=== PATIENT | male | born 1970 | race Caucasian/White ===

== ENCOUNTER 2016-08-28 09:53 | Inpatient (IN) | payer OTHER ==
[~2016-08-28] VITALS: Ht 172.7 cm; Wt 59.0 kg
[2016-08-28] VITALS (7 sets, daily range): BP systolic 96–131; BP diastolic 60–93
--- NOTE | ~2016-08-28 | H ---
[facility] [place] [address] HISTORY AND PHYSICAL Name: MANDO MORALES [facility] Room #: 433-I ADM IN M.R.#: [id number] Admission: 08/28/16 Attend Phys: Nayana Ordaz MD Discharge: Date of : 66 Report #: [id number] THIS REPORT FOR: //name// CC: Nayana Roque REASON FOR PRESENTATION: Shortness of breath of 1 day duration. HISTORY OF PRESENT ILLNESS: This is a very well known patient to us. He is a 45-year-old with past medical history of COPD that was O2 dependent with cachexia related to that. He has had numerous admissions in the past for the same issue. He presented complaining of severe shortness of breath. This has started this morning. He denies any fever or chills. He did have some dry cough. This is minimally productive. He is known as I have stated to have chronic respiratory failure, COPD and maintained on oxygen at home. On presentation, he was found to have very significant CO2 retention and was admitted for further evaluation and management. PAST MEDICAL HISTORY: 1. COPD, oxygen dependent. 2. Status post tracheostomy. 3. Status post PEG. 4. Anxiety. 5. Depression. 6. Status post hernia repair. 7. Tobacco abuse. 8. Status post left hip screw fixation. MEDICATIONS: DuoNeb. Augmentin. Escitalopram. Mirtazapine. Diazepam. Ergocalciferol. ALLERGIES: No known drug allergies. SOCIAL HISTORY: He denies drug or alcohol abuse. Unfortunately, he continues to smoke. REVIEW OF SYSTEMS: GENERAL: No fever or chills. CARDIOVASCULAR: No chest pain; however, significant shortness of breath. PULMONARY: Cough and shortness of breath. GASTROINTESTINAL: No nausea or vomiting. GENITOURINARY: No frequency, no urgency. [facility] [address] [place] [address] HISTORY AND PHYSICAL Name: MANDO MORALES [facility] Room #: 433-I [facility] IN [facility]#: [id number] Admission: 08/28/16 Attend Phys: Nayana Ordaz MD Discharge: Date of : 66 Report #: [id number] FAMILY HISTORY: Significant for hypertension. PHYSICAL EXAMINATION: GENERAL: He is alert, oriented. He is on BiPAP currently. VITAL SIGNS: Blood pressure is 118/85, pulse rate is 118. HEAD AND NECK: Noninvasive positive pressure ventilation mask is on. CHEST: Very limited air entry bilaterally. Usage of accessory muscle is apparent. CARDIOVASCULAR: Regular with no rub detected. ABDOMEN: Soft, nontender with no hepatosplenomegaly. LOWER EXTREMITIES: No edema with intact peripheral pulses. LABORATORY VALUES: Reviewed. Creatinine 0.5, blood sugar is 127. White blood cell count is 10. Blood gas revealed a pH of 7.2 and pCO2 of 97. ASSESSMENT, IMPRESSION AND PLAN: 1. Acute respiratory failure on top of chronic respiratory failure. 2. Severe chronic obstructive pulmonary disease. 3. Noncompliance. 4. O2 dependence. PLAN: 1. Admission. 2. BiPAP for now. 3. IV steroids. 4. Antibiotics. 5. Usual nebulizer treatments for his chronic obstructive pulmonary disease. 6. Repeated blood gases in couple of hours. 7. Resume his depression and anxiety medications. 8. Deep venous thrombosis prophylaxis with Lovenox. <ELECTRONICALLY SIGNED> By: Nayana Ordaz MD 08/29/16 1005 1207 1242 Nayana Ordaz MD /nt
--- NOTE | ~2016-08-28 | EKG ---
[address] [place] [address] ELECTROCARDIOGRAM REPORT Name: MANDO MORALES [facility] Room #: 433-I ADM IN M.R.#: [id number] Admission: 08/28/16 Attend Phys: Nayana Ordaz MD Discharge: Date of : 66 Report #: [id number] THIS REPORT FOR: //name// [facility] ED Test Date: 2016-08-28 Test Time: 09:55:48 Pat Name: MANDO MORALES Department: Room: [facility] Gender: M Outreach Team Member: Anabella RIOS : 1970 Requested By: Lea Velarde Order Number: [id number] MD: Nirmal Altamirano Measurements Intervals [place] Rate: 127 P: 90 [place]: 118 QRS: 76 QRSD: 87 T: 13 QT: 313 QTc: 456 Interpretive Statements Sinus tachycardia LAE, consider biatrial enlargement Minimal ST depression, inferior leads Compared to ECG 07/27/2016 13:03:26 No significant changes Electronically Signed On 08-28-2016 16:34:02 ROD AND TUBE STRAIGHTENER by Nirmal Altamirano [email or web address] <ELECTRONICALLY SIGNED> By: Nirmal Altamirano MD 08/28/16 1634 0955 0955 Nirmal Altamirano MD /CONSTANCE
[~2016-08-28 09:53] MED LIST: ACETAMINOP160 MG/12 PER TUBE; ADVAIR HFA115 MCG/21; ADVAIR HFA115 MCG/21 INH; ALBUTEROL2.5 MG/0.5 INH; ASPIRIN81 M2 PO; ATIVAN0.5 M1 PER TUBE; AUGMENTIN 875-1 EACH PO; AUGMENTIN 875875 MG PER TUBE; BACTRIM DS TAB1 EACH PO; BISACODYL SUPP10 MG RECTAL; BROVANA15 MCG/2 M; BUDESONIDE0.25 MG/2; CATAPRES-TTS 20.2 MG TD; CATHFLO ACT2 MG/VIA1 IV PUSH; CLARITIN10 M2 PO; CLARITIN10 MG PER TUBE; COMBIVENT; DUONEB 2.5-0.5 M3 ML INH; ENOXAPARIN40 MG/0.1 SUBQ; FENTANYL PATCH75 MCG TRANSDERM; FLUSH FLUSH; LACTINEX CHEWA1 EACH PO; LEVAQUIN 500 M500 M2 PO; LEVAQUIN 500 M500 M7 PO; LEXAPRO20 MG PO; LIDODERM 5%1 PATC1 TRANSDERM; LOPRESSOR25 PER TUBE; MONTELUKAST SOD10 MG PER TUBE; MUCINEX TA600 MG/TA2 PER TUBE; NEBULIZER MISCELL; NICOTINE TRANSD14 M1 TRANSDERM; NICOTINE TRANSD21 M1 TRANSDERM; NORCO 10-325 T1 EACH PO; NORCO 5-325 TA1 EACH PO; NYSTATIN15 GM TP; OMEPRAZOLE40 MG PER TUBE; ONDANSETRON HCL4 M2 IV PUSH; PEPCID20 MG PO; PERCOCET 10-321 EACH PER TUBE; PREDNISONE 10 M10 MG; PREDNISONE 10 M10 MG PO; PREDNISONE 20 M20 M1 PO; PREDNISONE 20 M20 MG PO; PROAIR HFA8.5 GM INH; PULMICORT0.5 MG/22 INH; REMERON15 M1 PO; REMERON15 MG PO; SINGULAIR 10 MG10 M1 PO; SODIUM CHLORIDE 0.9% IV; SPIRIVA; TRAMADOL 50 MG50 MG; TRAMADOL 50 MG50 MG PER TUBE; TRAMADOL 50 MG50 MG PO; TYLENOL325 MG PO; TYLENOL325 MG RECTAL; VALIUM10 MG PO; VALIUM5 MG PO; VICODIN ES 7.51 EACH; VICODIN ES 7.51 EACH PO; [UNRECOGNIZED DRUG - OTHER] TP
[2016-08-28] MEDS ORDERED: DUONEB 2.5-0.5 M3 ML INH (10:12)
[2016-08-28] MEDS ORDERED: ZANTAC 150MG T150 MG PO (10:12)
[2016-08-28] MEDS ORDERED: VITAMIN D 5050000 I1 PO (10:12)
[2016-08-28] MEDS ORDERED: MILK OF MA400 MG/5 M PO (10:13)
[2016-08-28] MEDS ORDERED: MUCINEX DM ER1 EAC1 PO (10:14)
[2016-08-28] MEDS ORDERED: ACIDOPHILUS1 EAC4 PO (10:14)
[2016-08-28 10:15] LABS: HEMATOCRIT 37.2 % (42.0-52.0); HEMOGLOBIN 11.5 gm/dL (14.0-18.0); MCH 27.5 pg (26.0-34.0); MCHC 31.1 % (28.0-37.0); MCV 88.3 fL (80.0-100.0); PLATELET COUNT 428 thou/uL (150-400); RBC 4.21 mil/uL (4.50-6.00); RDW 15.6 % (10.5-14.5)
[2016-08-28 10:16] LABS: MANUAL DIFF YES
[2016-08-28 10:23] LABS: CALCIUM 9.4 mg/dL (8.5-10.1); CREATININE 0.5 mg/dL (0.6-1.3); POTASSIUM 4.3 mmol/L (3.5-5.1)
[2016-08-28 10:24] LABS: ABG SAMPLE TYPE ARTERIAL; HCO3 41.6 mmol/L (22.0-26.0); O2(CT) 15.3 mL/dL (15.0-23.0); O2Hb 93.3 % (92.0-98.0); sO2 93.8 % (92.0-98.0); tCO2 44.6 mmol/L (24.0-30.0)
[2016-08-28 10:25] LABS: PCO2 97.8 mmHg (35.0-45.0); STICK SITE R.RADIAL; pH 7.247 (7.360-7.450)
[2016-08-28 11:03] LABS: ABSOLUTE NEUTROPHILS 7.8 thou/uL (1.4-8.2); POLYCHROMASIA OCCASIONAL; TOTAL CELL COUNT 100
[2016-08-28 11:04] LABS: ANISOCYTOSIS 1+
[2016-08-28 12:34] LABS: ABG SAMPLE TYPE ARTERIAL; BE(vivo) 12.3 mmol/L (-2 to +3); HCO3 41.9 mmol/L (22.0-26.0); LACTATE 0.79 mmol/L (0.5-2.0); O2Hb 93.3 % (92.0-98.0); PO2 77.2 mmHg (80.0-100.0); sO2 93.3 % (92.0-98.0); tCO2 44.6 mmol/L (24.0-30.0)
[2016-08-28 12:37] LABS: PCO2 87.1 mmHg (35.0-45.0); Pressure Support 6 cm H20; STICK SITE R.RADIAL; TIDAL VOLUME 370 ml
[2016-08-29 03:40] VITALS: BP 103/68
[2016-08-29 05:25] LABS: ABG SAMPLE TYPE ARTERIAL; BE(vivo) 12.3 mmol/L (-2 to +3); HCO3 40.2 mmol/L (22.0-26.0); LACTATE 1.01 mmol/L (0.5-2.0); O2(CT) 13.6 mL/dL (15.0-23.0); O2Hb 89.8 % (92.0-98.0); PO2 62.5 mmHg (80.0-100.0); STICK SITE R.BRACHIAL; pH 7.359 (7.360-7.450); tCO2 42.5 mmol/L (24.0-30.0)
[2016-08-29 05:26] LABS: Pressure Support 8 cm H20
[2016-08-29 08:00] VITALS: BP 100/55
[2016-08-29 12:00] VITALS: BP 120/68
[2016-08-29 16:00] VITALS: BP 101/66
[2016-08-29 20:43] VITALS: BP 115/69
[2016-08-30 05:30] LABS: HEMATOCRIT 29.2 % (42.0-52.0); MCH 27.4 pg (26.0-34.0); MCHC 31.4 % (28.0-37.0); MCV 87.4 fL (80.0-100.0); RBC 3.35 mil/uL (4.50-6.00); RDW 15.7 % (10.5-14.5); WBC 9.1 thou/uL (4.0-11.0)
[2016-08-30 05:45] LABS: ALBUMIN 3.3 g/dL (3.4-5.0); CALCIUM 8.4 mg/dL (8.5-10.1); CREATININE 0.6 mg/dL (0.6-1.3); PHOSPHORUS 2.4 mg/dL (2.5-4.9); POTASSIUM 4.4 mmol/L (3.5-5.1)
[2016-08-30 05:52] VITALS: BP 109/78
[2016-08-30 06:00] LABS: HEMOGLOBIN 9.2 gm/dL (14.0-18.0)
[2016-08-30 07:04] LABS: ABG SAMPLE TYPE ARTERIAL; BE(vivo) 11.9 mmol/L (-2 to +3); HCO3 39.1 mmol/L (22.0-26.0); LACTATE 0.85 mmol/L (0.5-2.0); O2(CT) 13.5 mL/dL (15.0-23.0); O2Hb 94.5 % (92.0-98.0); PO2 80.3 mmHg (80.0-100.0); sO2 95.2 % (92.0-98.0); tCO2 41.2 mmol/L (24.0-30.0)
[2016-08-30 07:05] LABS: PCO2 67.7 mmHg (35.0-45.0); STICK SITE L.RADIAL
[2016-08-30 08:00] VITALS: BP 115/80
[2016-08-30 12:00] VITALS: BP 126/83
[2016-08-30 16:00] VITALS: BP 120/81
[2016-08-30 19:02] VITALS: BP 120/73
[2016-08-31] VITALS (7 sets, daily range): BP systolic 109–142; BP diastolic 73–83
[2016-08-31 05:45] LABS: HEMATOCRIT 29.3 % (42.0-52.0); HEMOGLOBIN 9.3 gm/dL (14.0-18.0); MCH 27.4 pg (26.0-34.0); MCHC 31.5 % (28.0-37.0); PLATELET COUNT 323 thou/uL (150-400); RBC 3.37 mil/uL (4.50-6.00); RDW 15.8 % (10.5-14.5); WBC 8.9 thou/uL (4.0-11.0)
[2016-08-31 06:04] LABS: CALCIUM 8.2 mg/dL (8.5-10.1); CREATININE 0.6 mg/dL (0.6-1.3); MANUAL DIFF YES; POTASSIUM 4.6 mmol/L (3.5-5.1)
[2016-08-31 09:02] LABS: ABSOLUTE NEUTROPHILS 7.8 thou/uL (1.4-8.2); TOTAL CELL COUNT 100
[2016-08-31 09:03] LABS: ANISOCYTOSIS 1+; MACROCYTES 1+; MICROCYTES SLIGHT; POIKILOCYTOSIS 1+
[2016-08-31] MEDS ORDERED: PREDNISONE 10 M10 MG PO (11:12)
[2016-08-31] MEDS ORDERED: LEVAQUIN 500 M500 M2 PO (11:12)
[2016-08-31] MEDS ORDERED: LEXAPRO20 MG PO (11:59)
[2016-08-31] MEDS ORDERED: NORCO 10-325 T1 EACH PO (12:00)
[2016-08-31] MEDS ORDERED: PROTONIX40 M1 PO (14:52)
[2016-10-05] MEDS ORDERED: LEVAQUIN 500 M500 M1 PO (10:24)
[2016-10-05] MEDS ORDERED: LORTAB 10-3251 EACH PO (10:25)
[2016-10-05] MEDS ORDERED: PREDNISONE 20 M20 MG PO (10:25)
[2016-10-17] MEDS ORDERED: REMERON15 MG PO ×2 (21:23→21:24)
[2016-10-19] MEDS ORDERED: LEVAQUIN 500 M500 M2 PO (12:45)
[2016-10-19] MEDS ORDERED: PREDNISONE 20 M20 MG PO (12:46)
== END 2016-08-31 16:14 | disposition home or self-care (01) | DRG 193 ==
LOC: ER 09:53 → EROBS 11:51 → 4S 11:51
PROVIDERS: Emergency Medicine; Family Medicine; Hospitalist
PROC: 5A09457 Assistance with Respiratory Ventilation, 24-96 Consecutive Hours, Continuous Positive Airway Pressure (ICD-10-PCS; principal; 2016-08-28)
DX: J18.9 Pneumonia, unspecified organism (principal); J96.22 Acute and chronic respiratory failure with hypercapnia; J96.21 Acute and chronic respiratory failure with hypoxia; J44.1 Chronic obstructive pulmonary disease with (acute) exacerbation; E87.2 Acidosis; K21.9 Gastro-esophageal reflux disease without esophagitis; F41.9 Anxiety disorder, unspecified; F32.9 Major depressive disorder, single episode, unspecified; G89.29 Other chronic pain; M54.9 Dorsalgia, unspecified; Z79.891 Long term (current) use of opiate analgesic; Z93.1 Gastrostomy status; Z99.81 Dependence on supplemental oxygen; Z87.81 Personal history of (healed) traumatic fracture; Z79.899 Other long term (current) drug therapy; Z93.0 Tracheostomy status; Z98.890 Other specified postprocedural states; Z91.19 Patient's noncompliance with other medical treatment and regimen; Z79.2 Long term (current) use of antibiotics; Z87.891 Personal history of nicotine dependence
CPT/HCPCS: 10100

== ENCOUNTER 2016-11-11 16:09 | Emergency (ER) | payer OTHER ==
[~2016-11-11] VITALS: Ht 175.3 cm; Wt 81.7 kg
--- NOTE | ~2016-11-11 | EKG ---
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 : 1970 Requested By: Ronit Vidales Order Number: [id number] MD: Shady Sanchez Measurements Intervals [place] Rate: 117 P: 89 [place]: 103 QRS: 76 QRSD: 83 T: 7 QT: 320 QTc: 447 Interpretive Statements Sinus tachycardia Occasional premature ventricular complexes Minimal ST depression, inferior leads Compared to ECG 10/17/2016 05:40:52 Premature ventricular complexes are now present nonspecific change in the ST segments Electronically Signed On 11-12-2016 9:33:08 CDT by Shady Sanchez [email or web address] <ELECTRONICALLY SIGNED> By: Shady Sanchez MD, [facility] 11/12/16 0933 1618 161 Shady Sanchez MD, [facility] /EPI
[~2016-11-11 16:09] MED LIST changes: +ACIDOPHILUS1 EAC4 PO; +LEVAQUIN 500 M500 M1 PO; +LORTAB 10-3251 EACH PO; +MILK OF MA400 MG/5 M PO; +MUCINEX DM ER1 EAC1 PO; +PROTONIX40 M1 PO; +VITAMIN D 5050000 I1 PO; +ZANTAC 150MG T150 MG PO
[2016-11-11] MEDS ORDERED: PROBIOTIC1 EAC1 PO (16:25)
[2016-11-11] MEDS ORDERED: VITAMIN D3400 UNIT PO (16:26)
[2016-11-11] MEDS ORDERED: ATIVAN1 MG PO (16:26)
[2016-11-11] MEDS ORDERED: VOLTAREN GEL 1100 G2 TOP (16:26)
[2016-11-11] MEDS ORDERED: MILK OF MA2400 MG/10 PO (16:27)
[2016-11-11] MEDS ORDERED: DUONEB 2.5-0.5 M3 ML INH (16:27)
[2016-11-11] MEDS ORDERED: REMERON15 MG PO (16:27)
[2016-11-11] MEDS ORDERED: LEVAQUIN 750 M750 MG PO (16:28)
[2016-11-11 16:35] LABS: HEMATOCRIT 33.8 % (42.0-52.0); HEMOGLOBIN 10.8 gm/dL (14.0-18.0); MANUAL DIFF YES; MCH 27.4 pg (26.0-34.0); MCHC 31.9 g/dL (28.0-37.0); PLATELET COUNT 296 thou/uL (150-400); RBC 3.93 mil/uL (4.50-6.00); RDW 15.8 % (10.5-14.5); WBC 7.5 thou/uL (4.0-11.0)
[2016-11-11 16:46] LABS: ANION GAP 2 mmol/L (7-16); BUN 12 mg/dL (7-18); CALCIUM 9.4 mg/dL (8.5-10.1); CHLORIDE 99 mmol/L (98-107); CO2 37 mmol/L (21-32); CREATININE 0.7 mg/dL (0.7-1.3); GLUCOSE 132 mg/dL (74-106); POTASSIUM 4.2 mmol/L (3.5-5.1); SODIUM 138 mmol/L (136-145)
[2016-11-11 16:56] LABS: ALBUMIN 3.2 g/dL (3.4-5.0); ALKALINE PHOSPHATASE 97 U/L (46-116); NT-PRO BRAIN NAT PEPTIDE 45 pg/mL (<300); SGOT 18 U/L (15-37); SGPT 30 U/L (30-65); TOTAL BILIRUBIN 0.2 mg/dL (<0.1-1.0); TROPONIN-I < 0.04 ng/mL (<0.04-0.07)
[2016-11-11 17:01] LABS: ABSOLUTE NEUTROPHILS 6.8 thou/uL (1.4-8.2); TOTAL CELL COUNT 100
[2016-11-11 19:01] VITALS: BP 116/86
== END 2016-11-11 19:05 | disposition home or self-care (01) ==
LOC: ER 16:09
PROVIDERS: Emergency Medicine
DX: J44.1 Chronic obstructive pulmonary disease with (acute) exacerbation (principal); F41.9 Anxiety disorder, unspecified; F32.9 Major depressive disorder, single episode, unspecified; K21.9 Gastro-esophageal reflux disease without esophagitis; J96.20 Acute and chronic respiratory failure, unspecified whether with hypoxia or hypercapnia; G89.29 Other chronic pain; Z88.8 Allergy status to other drugs, medicaments and biological substances; Z87.891 Personal history of nicotine dependence

== ENCOUNTER 2016-11-29 13:03 | Inpatient (IN) | payer OTHER ==
[2016-11-29] VITALS (23 sets, daily range): BP systolic 104–192; BP diastolic 75–95
[~2016-11-29] VITALS: Ht 172.7 cm; Wt 58.3 kg
--- NOTE | ~2016-11-29 | EKG ---
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 : 1970 Requested By: Roosevelt Davalos Order Number: [id number] MD: Shady Sanchez Measurements Intervals [place] Rate: 117 P: 94 ME: 106 QRS: 81 QRSD: 80 T: 12 QT: 318 QTc: 444 Interpretive Statements Sinus tachycardia Right atrial enlargement Minimal ST depression, inferior leads Compared to ECG 11/11/2016 16:18:06 Ventricular premature complex(es) no longer present Electronically Signed On 11-30-2016 8:58:20 CDT by Shady Sanchez [email or web address] <ELECTRONICALLY SIGNED> By: Shady Sanchez MD, [facility] 11/30/16 0858 1421 1421 Shady Sanchez MD, [facility] /EPI
--- NOTE | ~2016-11-29 | H ---
[facility] [place] [address] HISTORY AND PHYSICAL Name: MANDO MORALES [facility] Room #: 306-P ADM IN M.R.#: [id number] Admission: 11/29/16 Attend Phys: Georges Larsen MD Discharge: Date of : 66 Report #: [id number] THIS REPORT FOR: //name// CC: Magnolia Larsen DATE OF SERVICE: 11/29/2016 CHIEF COMPLAINT: Shortness of breath. HISTORY OF PRESENT ILLNESS: The patient is a 45-year-old male with history of severe COPD. The patient has end-stage chronic obstructive disease and has had multiple admissions since last year. The patient's last admission was here in early November of this month. The patient presented to the emergency room because of shortness of breath over the last couple of days. He has had some low-grade fever. The patient denies any dizziness. He did have some chest pain over the chest with coughing. No sputum. No nausea or vomiting, no abdominal pain, no lower extremity swelling or pain. PAST MEDICAL HISTORY: Significant for COPD, anxiety, acute on chronic hypercapnic respiratory failure, chronic back pain, gastroesophageal reflux disease. He has had tracheostomy and PEG in the past, which has been removed. He has history of prior femoral neck fracture. No history of any peptic ulcer disease or bleeding disorder. History of hernia repair. HOME MEDICATIONS: Please look at the nursing documentation for home medications. ALLERGY: Please look at the nursing documentation for allergies. SOCIAL HISTORY: No smoking or alcohol abuse or illicit drug abuse. FAMILY HISTORY: Noncontributory for this patient at present. REVIEW OF SYSTEMS: Kind of limited from the patient because he is on a BiPAP at present. HEENT: He denies any visual disturbance. Denies any dizziness. GASTROINTESTINAL: No nausea, vomiting, or abdominal pain. GENITOURINARY: No dysuria or hematuria. NEUROLOGIC: Denies any focal numbness or weakness of the extremity. He does use a wheelchair at home. He is also supposed to use BiPAP. The 12-point review of system is negative other than the positive and the negative dictated in the history of present illness and the review of system. PHYSICAL EXAMINATION: [facility] [address] [place] [address] HISTORY AND PHYSICAL Name: MANDO MORALES [facility] Room #: 306-P [facility] IN [facility]#: [id number] Admission: 11/29/16 Attend Phys: Georges Larsen MD Discharge: Date of : 66 Report #: [id number] VITAL SIGNS: Reviewed. Blood pressure is 122/83, heart rate of 100 per minute, afebrile. GENERAL: The patient is awake and alert, is in mild respiratory distress. He is presently on a BiPAP. EYES: Pupils are equal and reactive to light. THROAT: Did not test. NECK: Supple. No JVD, no bruit, no lymphadenopathy. CARDIOVASCULAR: S1 and S2. No S3, no murmur. CHEST: Bilateral air entry present. Expiration is prolonged. Poor air movement. There are bilateral wheezes noted. No crackles. ABDOMEN: Soft. Bowel sounds present. No mass, no organomegaly, no tenderness. PERIPHERY: No pedal edema. No calf tenderness. Dorsalis pedis 1+. NEUROLOGICAL: No focal motor or sensory deficit. LABORATORY DATA: Reviewed. EKG showed sinus tachycardia with right atrial enlargement, mild ST depression in the inferior leads. White count of 7.4, hemoglobin of 10.3, platelets 296. Chest x-ray showed no acute infiltrate. There is severe emphysema. Initial blood gas showed a pH of 7.242, pCO2 of 119, pO2 of 50. PT/INR within normal limit. Chemistry is presently pending. His bicarbonate on the chemistry is 45. BUN and creatinine are 8 and 0.4. AST and ALT are within normal limit. Albumin is 3.1. ASSESSMENT AND PLAN: 1. Acute on chronic respiratory failure secondary to chronic obstructive pulmonary disease exacerbation. The patient will be continued on BiPAP. We will repeat his blood gas in a couple of hours. Pulmonary will be consulted. We will titrate his oxygen as needed. We need to check on his compliance with his BiPAP at the long term. 2. Chronic obstructive pulmonary disease exacerbation. The patient will be continued on DuoNeb and steroids. There is no evidence of any active infection. We will monitor. We will also get serial troponin. 3. Deep venous thrombosis prophylaxis. He will be continued on Lovenox for deep venous thrombosis prophylaxis. 4. Depression and anxiety. The patient will be continued on Celexa. Treatment plan has been explained to the patient in detail. <ELECTRONICALLY SIGNED> By: Georges Larsen MD 11/30/16 1208 1455 6683 Georges Larsen MD /nt
--- NOTE | ~2016-11-29 | D ---
[facility] [place] [address] DISCHARGE SUMMARY Name: MANDO MORALES [facility] Room #: 306-P [facility] IN M.R.#: [id number] Admission: 11/29/16 Attend Phys: Georges Larsen MD Discharge: 12/07/16 Date of : 66 Report #: [id number] THIS REPORT FOR: //name// CC: Magnolia Larsen DATE OF SERVICE: 12/07/2016 HISTORY OF PRESENT ILLNESS: The patient is a 45-year-old man with severe COPD and end-stage lung disease, who came to the hospital with shortness of breath. The patient was found to be in acute on chronic respiratory failure due to COPD exacerbation. Pneumonia was also suspected. Please refer to the admission H and P for details. HOSPITALIZATION COURSE: The patient was hospitalized at [facility]. New Home Sales Consultant was consulted. The patient initially was treated with IV antibiotics. He required BiPAP, as well as high doses of IV steroids. He had very slow improvement. The patient's respiratory status slowly returned to the baseline. Currently, the patient is on 4 liters of the oxygen by nasal cannula, that is his baseline. He uses BiPAP at night. His hospital stay was overall uncomplicated and he had no other problems than respiratory failure as detailed above. Currently, the patient's overall condition including physical examination is acceptable as documented in the patient's chart. DISCHARGE DIAGNOSES: 1. Acute on chronic respiratory failure due to severe chronic obstructive pulmonary disease exacerbation, suspected pneumonia, currently at baseline. 2. Chronic respiratory failure due to severe chronic obstructive pulmonary disease. 3. End-stage lung disease. 4. Anxiety. 5. Chronic back pain. 6. Gastroesophageal reflux disease. DISCHARGE MEDICATIONS: Please refer to the medication reconciliation list in EMR. DISPOSITION: The patient will be discharged back to the [facility] facility. FOLLOWUP PLAN: Follow up with the primary care physician and grocery specialist in [address] [place] [id number] DISCHARGE SUMMARY Name: MANDO MORALES [facility] Room #: 306-P [facility].#: [id number] Admission: 11/29/16 Attend Phys: Georges Larsen MD Discharge: 12/07/16 Date of : 66 Report #: [id number] week. I spent more than 30 minutes to coordinate the patient's discharge from the hospital. <ELECTRONICALLY SIGNED> By: Thomas Robins MD 12/13/16 1250 1012 1347 Thomas Robins MD /nt
--- NOTE | ~2016-11-29 | HC ---
[facility] [place] [address] CONSULTATION Name: MANDO MORALES [facility] Room #: 306-P [facility] IN M.R.#: [id number] Admission: 11/29/16 Attend Phys: Georges Larsen MD Discharge: Date of : 66 Report #: [id number] THIS REPORT FOR: //name// CC: Magnolia Larsen DATE OF SERVICE: 11/29/2016 PRIMARY CARE PHYSICIAN: Magnolia Kenyon MD REFERRAL PHYSICIAN: Georges Larsen MD REASON FOR REFERRAL: Acute respiratory failure. HISTORY OF PRESENT ILLNESS: The patient is a 45-year-old white male who presents to the Emergency Room with progressive dyspnea. A pulmonary consultation was requested. The patient has known history of severe COPD felt to be end stage. He has chronic hypoxic respiratory failure and is on 4 liters of O2 Continuously. He has also had numerous hospitalizations in the past. Over the past year, he has had admission at least once every 1-2 months, his last hospitalization being in October of 2016. The patient currently resides at [facility]. He states that he was in his usual state of health until about 2 days prior to presentation when he noted increasing dyspnea. He has had fever a few days ago. Otherwise, he denies any sore throat or productive cough or purulent sputum. PAST MEDICAL HISTORY: Notable for COPD causing severe impairment, chronic hypoxic respiratory failure on 4 liters of O2 chronically, anxiety and depression, tobacco abuse, according to the patient, he stopped smoking recently, chronic back pain - on chronic narcotics, had prior tracheostomy placed, which was subsequently removed, prior PEG tube placement, gastroesophageal reflux disease. PAST SURGICAL HISTORY: As mentioned above including left hip fracture and repair. ALLERGIES: None to medications. MEDICATIONS ON TRANSFER: Include Singulair, DuoNeb, Remeron, Probiotic, Voltaren, vitamin D supplements, Ativan, Levaquin 750 mg once a day. FAMILY HISTORY: Notable for COPD in the father. Mother had pancreatic cancer and diabetes. SOCIAL HISTORY: He is on disability. The patient has smoked about 1-2 packs a [facility] [place] [address] CONSULTATION Name: MANDO MORALES [facility] Room #: 306-P [facility] IN M.R.#: [id number] Admission: 11/29/16 Attend Phys: Georges Larsen MD Discharge: Date of : 66 Report #: [id number] day starting the age of 13, quit smoking recently. Denies any alcohol use. He is , but currently resides at [facility]. REVIEW OF SYSTEMS: Notable for progressive weakness, otherwise 10-point system review negative. PHYSICAL EXAMINATION: GENERAL: He is awake, alert, in moderate distress. He is currently on noninvasive positive pressure ventilation. VITAL SIGNS: Pulse is 134, respiratory rate is 20, blood pressure is 192/94 in the Emergency Room. Saturation 94%. HEENT: Normocephalic, atraumatic. NECK: Supple, without any lymphadenopathy or thyromegaly. CHEST: Breath sounds are decreased bilaterally with moderately prolonged expiratory phase with mild expiratory wheezes. CARDIOVASCULAR: Heart sounds are distant. No obvious murmurs or gallop. Pulses are 2+/4+bilaterally. ABDOMEN: Soft, nontender. No organomegaly or masses felt. RECTAL: Deferred. EXTREMITIES: There is no edema, cyanosis, or clubbing. LABORATORY DATA: Portable chest x-ray shows hyperexpanded lung quiroz with bullous changes in both upper lobes. Crowding of the vasculature is noted in both lower lobes. No obvious consolidation on bronchogram or effusion noted. Electrolytes unremarkable except for bicarbonate 45, creatinine is 0.4. Liver function tests unremarkable. WBC 10,500, hemoglobin 7.3, platelets are normal. Albumin 2.8. Arterial blood gas on admission revealed pH 7.24, pCO2 of 119, pO2 of 88 on 5 liters of O2. IMPRESSION: 1. Acute on chronic hypercapnic hypoxic respiratory failure in this 45-year-old white male secondary to exacerbation of severe end-stage chronic obstructive pulmonary disease. The patient may have a component of respiratory tract infection given recent febrile illness, though this is not obvious on chest radiograph. 2. Chronic obstructive pulmonary disease, end stage, with exacerbation. Chest x-ray shows bilateral upper lobe emphysema which is typically found in tobacco-related lung injury. 3. Protein calorie malnutrition, minor with an albumin of 3.1. RECOMMENDATION: We will continue noninvasive positive pressure ventilation, continue bronchodilators, corticosteroids, and broad-spectrum antibiotics. Antibiotics of choice should cover for possible nosocomial infectious processes given his recent hospitalization within the past month. Nutritional support will be addressed once he is stable. DVT and GI prophylaxis will be addressed. [address] [address] CONSULTATION Name: MANDO MORALES [facility] Room #: 306-P [facility] IN M.R.#: [id number] Admission: 11/29/16 Attend Phys: Georges Larsen MD Discharge: Date of : 66 Report #: [id number] Overall, prognosis felt to be poor given his recurrent exacerbation and severe pulmonary impairment. I believe the patient desires a full code blue. If the patient is able to remain stable off cigarettes for at least a year and medically compliant, he may be a candidate for evaluation for possible lung transplantation. Thank you for this consultation. <ELECTRONICALLY SIGNED> By: Yamil Breen MD 11/30/16 1308 1624 0205 Yamil Breen MD /nt
[~2016-11-29 13:03] MED LIST changes: +ATIVAN1 MG PO; +LEVAQUIN 750 M750 MG PO; +MILK OF MA2400 MG/10 PO; +PROBIOTIC1 EAC1 PO; +VITAMIN D3400 UNIT PO; +VOLTAREN GEL 1100 G2 TOP
[2016-11-29 13:31] LABS: ABG SAMPLE TYPE ARTERIAL; BE(vivo) 18.3 mmol/L (-2 to +3); HCO3 50.2 mmol/L (22.0-26.0); O2(CT) 14.8 mL/dL (15.0-23.0); O2Hb 94.9 % (92.0-98.0); PCO2 119.2 mmHg (35.0-45.0); PO2 88.1 mmHg (80.0-100.0); pH 7.242 (7.360-7.450); sO2 94.1 % (92.0-98.0); tCO2 53.8 mmol/L (24.0-30.0)
[2016-11-29 13:32] LABS: STICK SITE R.RADIAL
[2016-11-29 13:38] LABS: HEMATOCRIT 32.4 % (42.0-52.0); HEMOGLOBIN 10.3 gm/dL (14.0-18.0); MCH 27.6 pg (26.0-34.0); MCHC 31.6 g/dL (28.0-37.0); MCV 87.4 fL (80.0-100.0); PLATELET COUNT 296 thou/uL (150-400); RBC 3.71 mil/uL (4.50-6.00); RDW 15.2 % (10.5-14.5); WBC 10.5 thou/uL (4.0-11.0)
[2016-11-29 13:41] LABS: MANUAL DIFF YES
[2016-11-29 13:44] LABS: APTT 30.9 Seconds (24.5-32.8); PROTIME 9.4 Seconds (9.3-11.4)
[2016-11-29 14:11] LABS: ABSOLUTE NEUTROPHILS 7.2 thou/uL (1.4-8.2); PLATELET ESTIMATE NORMAL; TOTAL CELL COUNT 100
[2016-11-29 14:32] LABS: ALBUMIN 3.1 g/dL (3.4-5.0); ALKALINE PHOSPHATASE 110 U/L (46-116); ANION GAP < 0 mmol/L (7-16); BUN 8 mg/dL (7-18); CALCIUM 8.8 mg/dL (8.5-10.1); CHLORIDE 99 mmol/L (98-107); CK-MB MASS 2.8 ng/mL (<0.5-3.6); CREATININE 0.4 mg/dL (0.7-1.3); GLUCOSE 121 mg/dL (74-106); MAGNESIUM 2.1 mg/dL (1.8-2.4); NT-PRO BRAIN NAT PEPTIDE 109 pg/mL (<300); POTASSIUM 4.7 mmol/L (3.5-5.1); SGOT 26 U/L (15-37); SGPT 27 U/L (30-65); SODIUM 143 mmol/L (136-145); TOTAL BILIRUBIN 0.2 mg/dL (<0.1-1.0); TOTAL PROTEIN 7.9 g/dL (6.4-8.2); TROPONIN-I < 0.04 ng/mL (<0.04-0.07)
[2016-11-29 14:34] LABS: CO2 45 mmol/L (21-32)
[2016-11-29 16:31] LABS: ABG SAMPLE TYPE ARTERIAL; BE(vivo) 12.2 mmol/L (-2 to +3); HCO3 40.2 mmol/L (22.0-26.0); LACTATE 0.63 mmol/L (0.5-2.0); O2(CT) 13.3 mL/dL (15.0-23.0); O2Hb 91.8 % (92.0-98.0); PCO2 74.9 mmHg (35.0-45.0); PO2 63.7 mmHg (80.0-100.0); pH 7.348 (7.360-7.450); sO2 90.2 % (92.0-98.0); tCO2 42.5 mmol/L (24.0-30.0)
[2016-11-29 16:32] LABS: Pressure Support 7 cm H20; STICK SITE R.RADIAL
[2016-11-30] VITALS (14 sets, daily range): BP systolic 107–141; BP diastolic 79–93
[2016-11-30 01:32] LABS: BASOPHILS 0.1 % (0.0-2.0); HEMATOCRIT 30.3 % (42.0-52.0); HEMOGLOBIN 9.5 gm/dL (14.0-18.0); LYMPHOCYTES 9.6 % (24.0-44.0); MCH 27.2 pg (26.0-34.0); MCHC 31.5 g/dL (28.0-37.0); MCV 86.2 fL (80.0-100.0); MONOCYTES 1.6 % (1.0-8.0); PLATELET COUNT 261 thou/uL (150-400); POLYS 88.7 % (36.0-66.0); RBC 3.52 mil/uL (4.50-6.00); RDW 15.5 % (10.5-14.5); WBC 5.6 thou/uL (4.0-11.0)
[2016-11-30 01:39] LABS: MANUAL DIFF NO
[2016-11-30 01:44] LABS: CALCIUM 8.9 mg/dL (8.5-10.1); CREATININE 0.6 mg/dL (0.7-1.3); MAGNESIUM 1.8 mg/dL (1.8-2.4); POTASSIUM 3.9 mmol/L (3.5-5.1)
[2016-11-30 05:24] LABS: ABG SAMPLE TYPE ARTERIAL; BE(vivo) 11.5 mmol/L (-2 to +3); HCO3 37.7 mmol/L (22.0-26.0); LACTATE 1.19 mmol/L (0.5-2.0); O2(CT) 12.6 mL/dL (15.0-23.0); O2Hb 91.4 % (92.0-98.0); PCO2 59.9 mmHg (35.0-45.0); STICK SITE R.RADIAL; pH 7.417 (7.360-7.450); sO2 91.5 % (92.0-98.0); tCO2 39.6 mmol/L (24.0-30.0)
[2016-11-30 05:25] LABS: Pressure Support 7 cm H20; TIDAL VOLUME 450 ml
[2016-12-01 03:55] VITALS: BP 138/92
[2016-12-01 08:19] LABS: HEMATOCRIT 31.2 % (42.0-52.0); MCH 27.2 pg (26.0-34.0); MCHC 32.1 g/dL (28.0-37.0); MCV 84.9 fL (80.0-100.0); PLATELET COUNT 310 thou/uL (150-400); RBC 3.67 mil/uL (4.50-6.00); RDW 15.6 % (10.5-14.5); WBC 10.3 thou/uL (4.0-11.0)
[2016-12-01 08:30] LABS: MANUAL DIFF YES
[2016-12-01 08:35] LABS: CALCIUM 8.8 mg/dL (8.5-10.1); CREATININE 0.5 mg/dL (0.7-1.3); POTASSIUM 4.1 mmol/L (3.5-5.1)
[2016-12-01 08:51] LABS: MAGNESIUM 2.3 mg/dL (1.8-2.4)
[2016-12-01 09:03] LABS: TOTAL CELL COUNT 100
[2016-12-01 09:04] LABS: ANISOCYTOSIS 1+
[2016-12-01 09:41] VITALS: BP 134/88
[2016-12-01 11:33] VITALS: BP 136/86
[2016-12-01 15:36] VITALS: BP 122/90
[2016-12-01 20:10] VITALS: BP 124/87
[2016-12-02 03:45] VITALS: BP 132/91
[2016-12-02 10:02] VITALS: BP 111/75
[2016-12-02 13:04] VITALS: BP 117/79
[2016-12-02 16:57] VITALS: BP 117/79
[2016-12-02 16:59] VITALS: BP 130/88
[2016-12-02 20:00] VITALS: BP 124/92
[2016-12-03 04:00] VITALS: BP 138/98
[2016-12-03 08:21] VITALS: BP 141/89
[2016-12-03 12:31] VITALS: BP 117/86
[2016-12-03 15:51] VITALS: BP 120/92
[2016-12-03 20:36] VITALS: BP 128/86
[2016-12-04 04:26] VITALS: BP 121/81
[2016-12-04 08:15] VITALS: BP 112/78
[2016-12-04 12:04] VITALS: BP 114/77
[2016-12-04 15:34] VITALS: BP 119/75
[2016-12-04 19:59] VITALS: BP 125/90
[2016-12-05 04:07] VITALS: BP 119/89
[2016-12-05 08:30] VITALS: BP 119/83
[2016-12-05 11:15] VITALS: BP 113/75
[2016-12-05 15:25] VITALS: BP 97/77
[2016-12-05 19:40] VITALS: BP 118/91
[2016-12-06 03:22] LABS: ABSOLUTE NEUTROPHILS 11.9 thou/uL (1.4-8.2); BASOPHILS 0.1 % (0.0-2.0); EOSINOPHILS 1.2 % (0.0-3.0); HEMATOCRIT 34.7 % (42.0-52.0); LYMPHOCYTES 16.7 % (24.0-44.0); MCH 27.1 pg (26.0-34.0); MCHC 31.8 g/dL (28.0-37.0); MCV 85.1 fL (80.0-100.0); MONOCYTES 7.5 % (1.0-8.0); PLATELET COUNT 402 thou/uL (150-400); POLYS 74.5 % (36.0-66.0); RBC 4.08 mil/uL (4.50-6.00); RDW 16.3 % (10.5-14.5)
[2016-12-06 03:28] LABS: CALCIUM 9.1 mg/dL (8.5-10.1); CREATININE 0.5 mg/dL (0.7-1.3); POTASSIUM 4.1 mmol/L (3.5-5.1)
[2016-12-06 03:36] LABS: MANUAL DIFF NO
[2016-12-06 04:00] VITALS: BP 130/98
[2016-12-06 09:08] VITALS: BP 127/78
[2016-12-06 12:44] VITALS: BP 117/79
[2016-12-06 17:54] VITALS: BP 111/74
[2016-12-06 19:12] VITALS: BP 125/86
[2016-12-07 04:12] VITALS: BP 122/89
[2016-12-07 08:00] VITALS: BP 132/66
[2016-12-07] MEDS ORDERED: PREDNISONE 10 M10 MG PO (10:15)
[2016-12-07] MEDS ORDERED: AUGMENTIN 875-1 EACH PO (10:15)
[2016-12-07] MEDS ORDERED: LORTAB 10-3251 EACH PO (10:15)
[2016-12-07 11:39] VITALS: BP 109/71
== END 2016-12-07 14:01 | DRG 682 ==
LOC: ER 13:03 → ICU 14:14 → EROBS 14:14 → 3N 14:14 → ICU 15:52 → 3N 11-30 11:04
PROVIDERS: Emergency Medicine; Internal Medicine; Internal Medicine Endocrinology, Diabetes & Metabolism
PROC: 5A09557 Assistance with Respiratory Ventilation, Greater than 96 Consecutive Hours, Continuous Positive Airway Pressure (ICD-10-PCS; principal; 2016-11-29)
DX: N17.9 Acute kidney failure, unspecified (principal); J96.21 Acute and chronic respiratory failure with hypoxia; J18.9 Pneumonia, unspecified organism; J96.22 Acute and chronic respiratory failure with hypercapnia; J44.0 Chronic obstructive pulmonary disease with (acute) lower respiratory infection; E46 Unspecified protein-calorie malnutrition; J44.1 Chronic obstructive pulmonary disease with (acute) exacerbation; Z68.1 Body mass index [BMI] 19.9 or less, adult; F41.9 Anxiety disorder, unspecified; F32.9 Major depressive disorder, single episode, unspecified; G89.29 Other chronic pain; M54.9 Dorsalgia, unspecified; K21.9 Gastro-esophageal reflux disease without esophagitis; N18.9 Chronic kidney disease, unspecified; Z66 Do not resuscitate; Z87.81 Personal history of (healed) traumatic fracture; Z87.891 Personal history of nicotine dependence; Z93.1 Gastrostomy status; Z88.8 Allergy status to other drugs, medicaments and biological substances; Z93.0 Tracheostomy status; Z83.3 Family history of diabetes mellitus; Z82.5 Family history of asthma and other chronic lower respiratory diseases; Z80.8 Family history of malignant neoplasm of other organs or systems; Z99.81 Dependence on supplemental oxygen
CPT/HCPCS: 10078; 10096

== ENCOUNTER 2017-01-02 11:06 | Inpatient (IN) | payer OTHER ==
[~2017-01-02] VITALS: Ht 172.7 cm; Wt 61.3 kg
--- NOTE | ~2017-01-02 | HC ---
[facility] [address] [place] [address] CONSULTATION Name: [place] [facility] [place]: 214-P [facility] IN M.R.#: [id number] Admission: 01/02/17 Attend Phys: Mirian Ortega Discharge: Date of : 66 Report #: [id number] THIS REPORT FOR: //name// CC: Mirian Kenyon DATE OF SERVICE: 01/02/2017 DATE OF SERVICE: 01/02/2017. PRIMARY CARE PHYSICIAN: Magnolia Kenyon MD. REFERRAL PHYSICIAN: Mirian Ortega MD REASON FOR REFERRAL: Acute respiratory distress. HISTORY OF PRESENT ILLNESS: The patient is a 46-year-old white male who presents to the emergency room with progressive weakness and dyspnea. The patient has known severe end-stage COPD. A pulmonary consultation was requested. The patient is known to this physician. He is known to have end-stage COPD. He has chronic hypoxic respiratory failure on 4 liters of O2 at baseline. Over the past year, the patient has had numerous hospitalizations, being hospitalized every 1-2 months. 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 As a result, he resides at [facility]. He was last hospitalized on 11/29/2016. The patient has been doing fairly well until on the day of admission, the patient was found to be weak, dizzy, nauseated, complaining of blurry vision. Blood glucose was 87 at that time. Prior to that, the patient had complaints of mild productive cough and low-grade fever. Currently, he is on BiPAP. He states that he is feeling better. PAST MEDICAL HISTORY: As mentioned above including severe COPD, end-stage; chronic hypoxic respiratory failure, on 4 liters of O2; chronic anxiety and depression due to severe pulmonary impairment; tobacco abuse, still smoking about a pack a day, he started smoking at 13 years of age; chronic back pain, on chronic narcotics; past his respiratory failure, with a trachea placement, which was subsequently removed; had gastroesophageal reflux disease. He also has progressive generalized debility and weakness, necessitating a walker or wheelchair to get around. [facility] [address] [place] [address] CONSULTATION Name[place] [facility] [place]: 214-P [facility] IN M.R.#: [id number] Admission: 01/02/17 Attend Phys: Mirian Ortega Discharge: Date of : 66 Report #: [id number] PAST SURGICAL HISTORY: As mentioned above along with left hip fracture repair. ALLERGIES: VILANTEROL (BREO ELLIPTA), FLUTICASONE (FROM BREO ELLIPTA). MEDICATIONS: Include Singulair, DuoNeb, Remeron, Voltaren, Ativan. He was recently given Augmentin, prednisone, Lexapro, and Lortab 10/325 mg every 4 hours p.r.n. pain. FAMILY HISTORY: Notable COPD in the father. Mother had pancreatic cancer and diabetes. SOCIAL HISTORY: He is disabled. Currently, lives in [facility]. He has most of his life smoking about 1-2 packs a day and continues to do so. He denies any alcohol use. REVIEW OF SYSTEMS: As mentioned above, it is notable for progressive weakness and debility. He gets around on a wheelchair or walker. Otherwise, 10-point system review negative. PHYSICAL EXAMINATION: GENERAL: He is awake and alert, in mild respiratory distress. VITAL SIGNS: Temperature is 97.4 degrees Fahrenheit, pulse is 100, respiratory rate is 20, blood pressure 110/69 mmHg, and saturation is 94%. HEENT: Unremarkable. NECK: Supple. CHEST: Breath sounds are decreased bilaterally with mild expiratory wheezes. CARDIOVASCULAR: Normal S1, S2. Heart sounds are distant. No obvious murmurs or gallop. Pulses are 2+/4+ bilaterally. ABDOMEN: Markedly reduced. Soft, nontender, no organomegaly or masses felt. GENITOURINARY AND RECTAL: Deferred. EXTREMITIES: No cyanosis, clubbing or edema. LABORATORY AND DIAGNOSTIC DATA: CT chest and chest x-ray reviewed showing diffuse bullous disease bilaterally with several large bullae noted in the left chest. No evidence of pulmonary embolus is noted. EKG is unremarkable for any acute ischemic changes. Electrolytes are normal except for bicarbonate of 44. WBC 7100, hemoglobin 7.7, platelets are normal. Arterial blood gas revealed pH 7.38, pCO2 of 67, pO2 of 66 on FiO2 of 35%. On admission, arterial blood gas revealed pH 7.27, pCO2 of 98, and pO2 of 183. IMPRESSION: 1. Ilgmw-qn-vhmmlbr hypercapnic hypoxic respiratory failure in this 46-year-old white male secondary to exacerbation of his end-stage chronic obstructive pulmonary disease. Given productive cough and febrile illness, cannot rule out lower respiratory tract infection. 2. Chronic hypercapnic hypoxic respiratory failure. His baseline CO2 appears [facility] [address] [place] [address] CONSULTATION Name: MANDO MORALES GENE Room #: 214-P ADM IN M.R.#: [id number] Admission: 01/02/17 Attend Phys: Arleydev Grey Shannon Discharge: Date of : 66 Report #: [id number] to run around 58 with metabolic compensation. 3. Pulmonary cachexia syndrome, malnutrition and progressive weight loss. 4. Generalized debility and progressive weakness. RECOMMENDATIONS: I agree with current medical treatment including corticosteroids, bronchodilators, and broad spectrum antibiotics. DVT and GI prophylaxis have been addressed. Nutritional support is recommended. Overall, prognosis is very guarded. The patient desires a full code blue. Thank you for this consultation. <ELECTRONICALLY SIGNED> By: Yamil Breen MD 01/04/17 1239 1252 0455 Yamil Breen MD /nt
--- NOTE | ~2017-01-02 | EKG ---
[place] [address] [place] [address] ELECTROCARDIOGRAM REPORT Name: MANDO MORALES GENE Room #: REG Fidencio#: [id number] Admission: 01/02/17 Attend Phys: Discharge: Date of : 66 Report #: [id number] THIS REPORT FOR: //name// [facility] ED Test Date: 2017-01-02 Test Time: 12:15:18 Pat Name: MANDO MORALES Department: Room: Gender: M Dining Room Hostess: neyda : 1970 Requested By: Ro Yanes Order Number: [id number] MD: Shady Sanchez Measurements Intervals [place] Rate: 116 P: 91 OK: 115 QRS: 81 QRSD: 85 T: 29 QT: 318 QTc: 442 Interpretive Statements Sinus tachycardia Right atrial enlargement Nonspecific ST segment abnormality Compared to ECG 11/29/2016 14:21:49 No significant changes Electronically Signed On 01-02-2017 14:10:32 CDT by Shady Sanchez [email or web address] <ELECTRONICALLY SIGNED> By: Shady Sanchez MD, [facility] 01/02/17 1410 1215 1215 Shady Sanchez MD, FACC /EPI
[2017-01-02 11:09] VITALS: BP 124/81
[2017-01-02 12:04] LABS: URINE BILIRUBIN NEGATIVE (Negative); URINE BLOOD NEGATIVE (Negative); URINE COLOR YELLOW; URINE GLUCOSE-RANDOM* NEGATIVE (Negative); URINE KETONES NEGATIVE (Negative); URINE LEUKOCYTES-REFLEX NEGATIVE (Negative); URINE PROTEIN (DIPSTICK) NEGATIVE (Negative); URINE SPECIFIC GRAVITY 1.015 (1.003-1.035); URINE UROBILINOGEN 0.2 E.U./dl (0.2-1.0)
[2017-01-02 12:05] LABS: HEMATOCRIT 33.8 % (42.0-52.0); HEMOGLOBIN 10.7 gm/dL (14.0-18.0); MCHC 31.7 g/dL (28.0-37.0); MCV 88.3 fL (80.0-100.0); PLATELET COUNT 338 thou/uL (150-400); RBC 3.83 mil/uL (4.50-6.00); WBC 7.1 thou/uL (4.0-11.0)
[2017-01-02 12:06] LABS: MANUAL DIFF YES
[2017-01-02 12:11] LABS: CALCIUM 9.4 mg/dL (8.5-10.1); CREATININE 0.4 mg/dL (0.7-1.3)
[2017-01-02 12:27] LABS: ABSOLUTE NEUTROPHILS 4.6 thou/uL (1.4-8.2); PLATELET ESTIMATE NORMAL; TOTAL CELL COUNT 100
[2017-01-02 14:23] LABS: ABG SAMPLE TYPE ARTERIAL; BE(vivo) 14.6 mmol/L (-2 to +3); LACTATE 0.64 mmol/L (0.5-2.0); O2(CT) 15.7 mL/dL (15.0-23.0); PO2 183.8 mmHg (80.0-100.0)
[2017-01-02 14:24] LABS: PCO2 98.4 mmHg (35.0-45.0); STICK SITE L.RADIAL; pH 7.278 (7.360-7.450)
[2017-01-02 15:28] VITALS: BP 120/75
[2017-01-02 15:45] VITALS: BP 123/83
[2017-01-02] MEDS ORDERED: BREO ELLIPTA 11 EACH INH (16:31)
[2017-01-02] MEDS ORDERED: MUCINEX TA600 MG/TA2 PO (16:32)
[2017-01-02 17:09] LABS: ABG SAMPLE TYPE ARTERIAL; BE(vivo) 11.8 mmol/L (-2 to +3); HCO3 39.3 mmol/L (22.0-26.0); LACTATE 0.76 mmol/L (0.5-2.0); O2(CT) 14.6 mL/dL (15.0-23.0); O2Hb 92.3 % (92.0-98.0); PO2 66.7 mmHg (80.0-100.0); sO2 92.1 % (92.0-98.0); tCO2 41.3 mmol/L (24.0-30.0)
[2017-01-02 17:10] LABS: PCO2 67.9 mmHg (35.0-45.0); Pressure Support 6 cm H20; STICK SITE L.RADIAL
[2017-01-02 19:48] VITALS: BP 121/86
[2017-01-03 04:20] VITALS: BP 121/86
[2017-01-03 07:55] VITALS: BP 110/69
[2017-01-03 12:15] VITALS: BP 136/80
[2017-01-03 16:20] VITALS: BP 150/101
[2017-01-03 19:55] VITALS: BP 134/89
[2017-01-04 03:39] VITALS: BP 120/88
[2017-01-04 07:19] VITALS: BP 141/103
[2017-01-04 11:15] VITALS: BP 136/100
[2017-01-04 15:46] VITALS: BP 138/108
[2017-01-04 19:26] VITALS: BP 145/100
[2017-01-05 04:17] LABS: CALCIUM 8.7 mg/dL (8.5-10.1); CREATININE 0.5 mg/dL (0.7-1.3); MAGNESIUM 2.2 mg/dL (1.8-2.4); POTASSIUM 3.8 mmol/L (3.5-5.1)
[2017-01-05 04:19] LABS: HEMATOCRIT 30.2 % (42.0-52.0); HEMOGLOBIN 9.9 gm/dL (14.0-18.0); MCH 28.1 pg (26.0-34.0); MCHC 32.6 g/dL (28.0-37.0); MCV 86.3 fL (80.0-100.0); RBC 3.5 mil/uL (4.50-6.00); RDW 16.4 % (10.5-14.5); WBC 10.5 thou/uL (4.0-11.0)
[2017-01-05 05:02] VITALS: BP 116/74
[2017-01-05 08:15] VITALS: BP 113/79
[2017-01-05 11:59] VITALS: BP 150/99
[2017-01-05 14:58] VITALS: BP 128/79
[2017-01-05 19:45] VITALS: BP 135/90
[2017-01-06 03:44] VITALS: BP 131/94
[2017-01-06] MEDS ORDERED: AUGMENTIN 500-1 EACH PO (09:34)
[2017-01-06] MEDS ORDERED: PULMICORT0.5 MG/21 INH (09:35)
[2017-01-06] MEDS ORDERED: CARDIZEM CD 18180 M3 PO (09:35)
[2017-01-06] MEDS ORDERED: THEO-24100 MG PO (09:35)
[2017-01-06] MEDS ORDERED: PREDNISONE 10 M10 MG PO (09:37)
[2017-01-06 09:45] VITALS: BP 145/98
[2017-01-06 12:19] VITALS: BP 153/102
== END 2017-01-06 13:00 | DRG 177 ==
LOC: ER 11:06 → EROBS 14:37 → 2N 14:37
PROVIDERS: Emergency Medicine; Internal Medicine Pulmonary Disease
PROC: 5A09457 Assistance with Respiratory Ventilation, 24-96 Consecutive Hours, Continuous Positive Airway Pressure (ICD-10-PCS; principal; 2017-01-02)
DX: J69.0 Pneumonitis due to inhalation of food and vomit (principal); J96.21 Acute and chronic respiratory failure with hypoxia; J96.22 Acute and chronic respiratory failure with hypercapnia; J44.1 Chronic obstructive pulmonary disease with (acute) exacerbation; E87.2 Acidosis; R64 Cachexia; E87.3 Alkalosis; F41.9 Anxiety disorder, unspecified; F32.9 Major depressive disorder, single episode, unspecified; G89.29 Other chronic pain; M54.9 Dorsalgia, unspecified; K21.9 Gastro-esophageal reflux disease without esophagitis; F17.210 Nicotine dependence, cigarettes, uncomplicated; D64.9 Anemia, unspecified; Z93.1 Gastrostomy status; Z68.20 Body mass index [BMI] 20.0-20.9, adult; Z87.81 Personal history of (healed) traumatic fracture; Z88.8 Allergy status to other drugs, medicaments and biological substances; Z79.899 Other long term (current) drug therapy; Z93.0 Tracheostomy status; Z82.5 Family history of asthma and other chronic lower respiratory diseases; Z80.8 Family history of malignant neoplasm of other organs or systems; Z83.3 Family history of diabetes mellitus
CPT/HCPCS: 10797

== ENCOUNTER 2017-02-07 15:08 | Inpatient (IN) | payer OTHER ==
[~2017-02-07] VITALS: Ht 172.7 cm; Wt 66.9 kg
--- NOTE | ~2017-02-07 | EKG ---
[address] [address] ELECTROCARDIOGRAM REPORT Name: MANDO MORALES GENE Room #: 217-P ADM IN M.R.#: [id number] Admission: 02/07/17 Attend Phys: Porter Mills MD Discharge: Date of : 66 Report #: [id number] THIS REPORT FOR: //name// [facility] ED Test Date: 2017-02-07 Test Time: 15:49:06 Pat Name: MANDO MORALES Department: Room: 217 Gender: M Pedigree Tracer: SAEED : 1970 Requested By: Alyssa Berkowitz Order Number: [id number] MD: Nirmal Altamirano Measurements Intervals [place] Rate: 111 P: 81 VA: 106 QRS: 75 QRSD: 87 T: 15 QT: 330 QTc: 449 Interpretive Statements Sinus tachycardia Minimal ST depression, inferior leads Compared to ECG 01/02/2017 12:15:18 Atrial abnormality no longer present ST (T wave) deviation still present Electronically Signed On 02-08-2017 22:53:06 CDT by Nirmal Altamirano [email or web address] <ELECTRONICALLY SIGNED> By: Nirmal Altamirano MD 02/08/17 2253 1549 1549 Nirmal Altamirano MD /EPI
[~2017-02-07 15:08] MED LIST changes: +AUGMENTIN 500-1 EACH PO; +BREO ELLIPTA 11 EACH INH; +CARDIZEM CD 18180 M3 PO; +MUCINEX TA600 MG/TA2 PO; +PULMICORT0.5 MG/21 INH; +THEO-24100 MG PO
[2017-02-07 15:09] VITALS: BP 140/93
[2017-02-07 15:24] LABS: ABG SAMPLE TYPE ARTERIAL; BE(vivo) 10.6 mmol/L (-2 to +3); HCO3 39.9 mmol/L (22.0-26.0); LACTATE 0.93 mmol/L (0.5-2.0); O2Hb 97.7 % (92.0-98.0); PO2 127.6 mmHg (80.0-100.0); sO2 98.1 % (92.0-98.0); tCO2 42.4 mmol/L (24.0-30.0)
[2017-02-07 15:25] LABS: PCO2 82.7 mmHg (35.0-45.0); STICK SITE R.RADIAL; pH 7.301 (7.360-7.450)
[2017-02-07 15:30] LABS: HEMATOCRIT 33.8 % (42.0-52.0); HEMOGLOBIN 11.1 gm/dL (14.0-18.0); MCHC 32.9 g/dL (28.0-37.0); MCV 88.3 fL (80.0-100.0); PLATELET COUNT 400 thou/uL (150-400); RBC 3.83 mil/uL (4.50-6.00); RDW 16.4 % (10.5-14.5); WBC 17.7 thou/uL (4.0-11.0)
[2017-02-07 15:31] LABS: MANUAL DIFF YES
[2017-02-07 16:01] LABS: ABSOLUTE NEUTROPHILS 11.3 thou/uL (1.4-8.2); ANISOCYTOSIS 1+; TOTAL CELL COUNT 100
[2017-02-07 16:02] LABS: POLYCHROMASIA OCCASIONAL
[2017-02-07 16:48] LABS: ALBUMIN 3.1 g/dL (3.4-5.0); ALKALINE PHOSPHATASE 100 U/L (46-116); ANION GAP 1 mmol/L (7-16); BUN 16 mg/dL (7-18); CHLORIDE 97 mmol/L (98-107); CO2 39 mmol/L (21-32); CREATININE 0.7 mg/dL (0.7-1.3); GLUCOSE 238 mg/dL (74-106); NT-PRO BRAIN NAT PEPTIDE 26 pg/mL (<300); POTASSIUM 4.4 mmol/L (3.5-5.1); SGOT 21 U/L (15-37); SGPT 21 U/L (30-65); SODIUM 137 mmol/L (136-145); TOTAL PROTEIN 7.4 g/dL (6.4-8.2); TROPONIN-I < 0.04 ng/mL (<0.04-0.07)
[2017-02-07 17:00] LABS: TOTAL BILIRUBIN < 0.1 mg/dL (<0.1-1.0)
[2017-02-07 17:07] LABS: ABG SAMPLE TYPE ARTERIAL; BE(vivo) 8.3 mmol/L (-2 to +3); LACTATE 1.25 mmol/L (0.5-2.0); O2(CT) 16.9 mL/dL (15.0-23.0); O2Hb 97.3 % (92.0-98.0); PO2 118.1 mmHg (80.0-100.0); STICK SITE R.RADIAL; pH 7.311 (7.360-7.450); sO2 97.8 % (92.0-98.0); tCO2 39.3 mmol/L (24.0-30.0)
[2017-02-07 17:08] LABS: Pressure Support 16 cm H20; VDS BIPAP SPONT TIMED cc
[2017-02-07 18:30] VITALS: BP 113/71
[2017-02-07 18:45] VITALS: BP 132/94
[2017-02-07 20:06] VITALS: BP 110/76
[2017-02-07 23:33] VITALS: BP 111/62
[2017-02-08] MEDS ORDERED: NORCO 10-325 T1 EACH PO (00:49)
[2017-02-08 03:12] VITALS: BP 120/74
[2017-02-08 04:11] LABS: ABG SAMPLE TYPE ARTERIAL; BE(vivo) 5.3 mmol/L (-2 to +3); LACTATE 1.29 mmol/L (0.5-2.0); O2(CT) 14.4 mL/dL (15.0-23.0); O2Hb 91.9 % (92.0-98.0); PCO2 65.6 mmHg (35.0-45.0); PO2 69.6 mmHg (80.0-100.0); STICK SITE L.RADIAL; pH 7.319 (7.360-7.450)
[2017-02-08 05:06] VITALS: BP 218/119
[2017-02-08 07:45] VITALS: BP 112/78
[2017-02-08 11:40] VITALS: BP 101/64
[2017-02-08 15:55] VITALS: BP 115/73
[2017-02-08 19:43] VITALS: BP 124/83
[2017-02-09 00:05] LABS: GLYCOHEMOGLOBIN (HGB A1C) 4.8 % (4.8-5.6)
[2017-02-09 03:19] LABS: HEMATOCRIT 29.5 % (42.0-52.0); HEMOGLOBIN 9.7 gm/dL (14.0-18.0); MCH 28.7 pg (26.0-34.0); MCHC 32.8 g/dL (28.0-37.0); MCV 87.6 fL (80.0-100.0); PLATELET COUNT 360 thou/uL (150-400); RBC 3.37 mil/uL (4.50-6.00); RDW 16.3 % (10.5-14.5); WBC 9.3 thou/uL (4.0-11.0)
[2017-02-09 03:20] LABS: MANUAL DIFF YES
[2017-02-09 03:24] VITALS: BP 103/63
[2017-02-09 03:29] LABS: CALCIUM 8.6 mg/dL (8.5-10.1); CREATININE 0.7 mg/dL (0.7-1.3); MAGNESIUM 2.1 mg/dL (1.8-2.4); POTASSIUM 4.3 mmol/L (3.5-5.1)
[2017-02-09 03:43] LABS: ABSOLUTE NEUTROPHILS 8.1 thou/uL (1.4-8.2); PLATELET ESTIMATE NORMAL; TOTAL CELL COUNT 100
[2017-02-09 08:16] VITALS: BP 120/81
[2017-02-09 13:47] VITALS: BP 115/72
[2017-02-09 17:19] VITALS: BP 116/73
[2017-02-09 19:34] VITALS: BP 125/82
[2017-02-10 03:46] VITALS: BP 118/80
[2017-02-10 08:00] VITALS: BP 104/66
[2017-02-10 09:35] LABS: HEMATOCRIT 33.6 % (42.0-52.0); HEMOGLOBIN 10.7 gm/dL (14.0-18.0); MCH 28.7 pg (26.0-34.0); MCHC 31.9 g/dL (28.0-37.0); MCV 89.8 fL (80.0-100.0); RBC 3.74 mil/uL (4.50-6.00); WBC 9.6 thou/uL (4.0-11.0)
[2017-02-10 09:46] LABS: CALCIUM 8.8 mg/dL (8.5-10.1); CREATININE 0.7 mg/dL (0.7-1.3); POTASSIUM 3.7 mmol/L (3.5-5.1)
[2017-02-10 12:00] VITALS: BP 134/86
[2017-02-10 16:00] VITALS: BP 125/73
[2017-02-10 19:23] VITALS: BP 116/72
[2017-02-11 07:45] VITALS: BP 103/67
[2017-02-11 11:20] VITALS: BP 118/76
[2017-02-11] MEDS ORDERED: LEVAQUIN 500 M500 M3 PO (15:08)
[2017-02-11] MEDS ORDERED: IRON325 PO (15:08)
[2017-02-11] MEDS ORDERED: PROTONIX40 M1 PO (15:09)
[2017-02-11] MEDS ORDERED: PREDNISONE 10 M10 M1 PO (15:12)
[2017-02-11 16:04] VITALS: BP 122/83
== END 2017-02-11 17:41 | DRG 871 ==
LOC: ER 15:08 → EROBS 16:17 → 2N 16:17
PROVIDERS: Internal Medicine; Internal Medicine Pulmonary Disease; Nurse Practitioner; Physician Assistant
PROC: 5A09557 Assistance with Respiratory Ventilation, Greater than 96 Consecutive Hours, Continuous Positive Airway Pressure (ICD-10-PCS; principal; 2017-02-07)
DX: A41.9 Sepsis, unspecified organism (principal); J18.9 Pneumonia, unspecified organism; J96.22 Acute and chronic respiratory failure with hypercapnia; J96.21 Acute and chronic respiratory failure with hypoxia; J44.0 Chronic obstructive pulmonary disease with (acute) lower respiratory infection; J98.11 Atelectasis; J44.1 Chronic obstructive pulmonary disease with (acute) exacerbation; F32.9 Major depressive disorder, single episode, unspecified; F41.9 Anxiety disorder, unspecified; G89.29 Other chronic pain; M54.9 Dorsalgia, unspecified; D64.9 Anemia, unspecified; Z66 Do not resuscitate; R53.81 Other malaise; I10 Essential (primary) hypertension; K21.9 Gastro-esophageal reflux disease without esophagitis; R73.9 Hyperglycemia, unspecified; Z93.1 Gastrostomy status; Z87.81 Personal history of (healed) traumatic fracture; Z79.899 Other long term (current) drug therapy; Z88.8 Allergy status to other drugs, medicaments and biological substances; Z87.891 Personal history of nicotine dependence; Z93.0 Tracheostomy status; Z80.8 Family history of malignant neoplasm of other organs or systems; Z82.3 Family history of stroke
CPT/HCPCS: 10081

== ENCOUNTER 2018-06-11 08:15 | Emergency (ER) | payer OTHER ==
[~2018-06-11] VITALS: Ht 172.7 cm; Wt 81.7 kg
[~2018-06-11 08:15] MED LIST changes: +IRON325 PO; +LEVAQUIN 500 M500 M3 PO; +PREDNISONE 10 M10 M1 PO
[2018-06-11] MEDS ORDERED: AZITHROMYCIN 2250 MG PO (10:43)
[2018-06-11 11:22] VITALS: BP 139/95
== END 2018-06-11 11:42 ==
LOC: ER 08:15
DX: R45.851 Suicidal ideations (principal); J44.9 Chronic obstructive pulmonary disease, unspecified; J20.9 Acute bronchitis, unspecified; Z87.891 Personal history of nicotine dependence; Z88.8 Allergy status to other drugs, medicaments and biological substances; F41.9 Anxiety disorder, unspecified; F32.9 Major depressive disorder, single episode, unspecified; M54.9 Dorsalgia, unspecified; G89.29 Other chronic pain; K21.9 Gastro-esophageal reflux disease without esophagitis

== ENCOUNTER 2019-04-15 20:52 | Inpatient (IN) | payer OTHER ==
[~2019-04-15] VITALS: Ht 172.7 cm; Wt 81.6 kg
[~2019-04-15 20:52] MED LIST changes: +AZITHROMYCIN 2250 MG PO
[2019-04-15 21:00] VITALS: BP 177/105
[2019-04-15 21:46] LABS: ABSOLUTE NEUTROPHILS 6.1 thou/uL (1.4-8.2); BASOPHILS 0.3 % (0.0-2.0); HEMATOCRIT 37.7 % (42.0-52.0); HEMOGLOBIN 12.2 gm/dL (14.0-18.0); LYMPHOCYTES 11.1 % (24.0-44.0); MCH 27.2 pg (26.0-34.0); MCHC 32.3 g/dL (28.0-37.0); MCV 84.4 fL (80.0-100.0); MONOCYTES 10.8 % (1.0-8.0); PLATELET COUNT 302 thou/uL (150-400); POLYS 76.8 % (36.0-66.0); RBC 4.47 mil/uL (4.50-6.00); WBC 7.9 thou/uL (4.0-11.0)
[2019-04-15 22:01] LABS: ANION GAP 7 mmol/L (7-16); BUN 11 mg/dL (7-18); CALCIUM 9.7 mg/dL (8.5-10.1); CHLORIDE 97 mmol/L (98-107); CO2 32 mmol/L (21-32); CREATININE 0.6 mg/dL (0.7-1.3); GLUCOSE 130 mg/dL (74-106); POTASSIUM 3.6 mmol/L (3.5-5.1); SODIUM 136 mmol/L (136-145)
[2019-04-15 22:12] LABS: ALBUMIN 3.6 g/dL (3.4-5.0); MAGNESIUM 1.9 mg/dL (1.8-2.4); SGOT 22 U/L (15-37); SGPT 31 U/L (30-65); TOTAL BILIRUBIN 0.2 mg/dL (<0.1-1.0); TOTAL PROTEIN 8.3 g/dL (6.4-8.2); TROPONIN-I <0.06 ng/mL (<0.06)
[2019-04-15 22:53] LABS: URINE BILIRUBIN NEGATIVE (Negative); URINE BLOOD NEGATIVE (Negative); URINE CLARITY CLEAR; URINE COLOR YELLOW; URINE GLUCOSE-RANDOM* NEGATIVE (Negative); URINE KETONES 1+ (Negative); URINE LEUKOCYTES-REFLEX NEGATIVE (Negative); URINE NITRITE-REFLEX NEGATIVE (Negative); URINE PROTEIN (DIPSTICK) TRACE (Negative); URINE SPECIFIC GRAVITY 1.025 (1.005-1.035); URINE UROBILINOGEN 0.2 E.U./dl (0.2-1.0)
[2019-04-15] MEDS ORDERED: PERCOCET 10-321 EACH PO (23:30)
[2019-04-15 23:31] VITALS: BP 177/105
[2019-04-15] MEDS ORDERED: SENN PO (23:31)
[2019-04-15] MEDS ORDERED: [UNRECOGNIZED DRUG - OTHER] PO (23:31)
[2019-04-15] MEDS ORDERED: PEG3350510 GM PO (23:34)
[2019-04-15] MEDS ORDERED: TRAZODONE HCL100 MG PO (23:35)
[2019-04-15 23:36] LABS: BE(vivo) 1.9 mmol/L (-2 to +3); PO2 161.6 mmHg (80.0-100.0); pH 7.366 (7.360-7.450)
[2019-04-15] MEDS ORDERED: LEXAPRO 10 MG T10 M2 PO (23:36)
[2019-04-15] MEDS ORDERED: MELATONIN5 M1 PO (23:37)
[2019-04-15] MEDS ORDERED: DOXYCYCLINE 10100 MG PO (23:37)
[2019-04-15] MEDS ORDERED: PREDNISONE 10 M10 MG PO (23:38)
[2019-04-15] MEDS ORDERED: CHLORASEPTIC MA30 ML PO (23:39)
[2019-04-16 01:00] VITALS: BP 119/83
[2019-04-16 01:32] VITALS: BP 134/80
--- NOTE | 2019-04-16 02:13 | NUR ---
ADMISSION NOTE: PT IS ALERT AND ORIENTED X4. CALM AND PLEASANT. HE DEPENDANT ON THE BIPAP TONIGHT. HIS BREATHING IS COMFORTABLE AT TIME OF ADMISSION. IV VANCO STARTED. ORIENTED TO ROOM AND SURROUNDINGS. CAREPLAN STARTED.
[2019-04-16 04:16] VITALS: BP 117/75
[2019-04-16 05:14] LABS: CHOLESTEROL 172 mg/dL (<200); HDL CHOLESTEROL 39 mg/dL (>40); LDL CHOLESTEROL 119 mg/dL (<100); TC:HDL 4.4 Ratio (Not establshd); TRIGLYCERIDE 70 mg/dL (<150); VLDL 14 mg/dL (<40)
[2019-04-16 05:15] LABS: SERUM ASSESSMENT Clear
[2019-04-16 07:58] VITALS: BP 139/87
--- NOTE | 2019-04-16 08:18 | EKG ---
[address] [place] [address] ELECTROCARDIOGRAM REPORT Name: MANDO MORALES GENE Room #: 355-P ADM IN M.R.#: [id number] ������������������ Admission: 04/15/19 ������������������ Attend Phys: Porter Mills MD Discharge: ������������������ Date of : 66 Report #: [id number] ����������������������������������������������������������������� [id number] THIS REPORT FOR: //name// [facility] ED Test Date: 2019-04-15 Test Time: 21:00:29 Pat Name: MANDO MORALES Department: Room: 355 Gender: M Material Scheduler: TOM : 1970 Requested By: Roosevelt Davalos Order Number: [id number] MD: Shady Sanchez Measurements Intervals [place] Rate: 122 P: 99 AK: 119 QRS: 84 QRSD: 87 T: -63 QT: 292 QTc: 416 Interpretive Statements Sinus tachycardia Nonspecific ST segment abnormality Compared to ECG 02/07/2017 15:49:[address] segment abnormality is now present Electronically Signed On 04-16-2019 8:18:45 CDT by Shady Sanchez [email or web address] ��������������������������������������������� <ELECTRONICALLY SIGNED> ���������������������������������������� By: Shady Sanchez MD, [facility] ��������������������������������������������� 04/16/19817 99 99 Shady Sanchez MD, [facility] /EPI
--- NOTE | 2019-04-16 15:02 | NUR ---
INITIAL ASSESSMENT: Received consult. SW reviewed chart and spoke with nursing and attending physician. Pt was admitted from [facility] due to COPD exacerbation. SW met with pt at bedside. Introduced role of SW. Pt is alert/orientated x 4. Pt on bipap currently. Pt confirms plan is for pt to return to [facility] when medically stable. SW faxed clinical info to [facility] for review. SW notified [facility] complaint coordinator. Unsure of discharge timeframe. GURVINDER is following to assist as needed with discharge planning.
[2019-04-16 16:33] VITALS: BP 129/88
--- NOTE | 2019-04-16 18:25 | NUR ---
pt is A&O X3, PT is continuing BIPAP with o2 45% to keep p2sat at 94-100%, pt has medications for back pain and anxiety, pt's vs are stable, pt is coninuing IV abx and NS 125ML/HR, PT needs hlep with ADL, pt has slowly meeting care plan goals.
[2019-04-16 19:28] VITALS: BP 151/95
--- NOTE | 2019-04-17 02:49 | NUR ---
Patient is alert and oriented. patient is from [facility]. patient is on bipap 45% fio2. patient is sinus tach on tele. patient gets anxious prn anxiety meds given. patients blood pressure has been stable. patient is achs accuchecks for steriods. patients labm was the 9th. patient is stress incontient. patients pain improved with pain medication. patient is resitng comfortably in bed. patient can turn self. patient is progressing to goals. wcm.
[2019-04-17 04:43] VITALS: BP 174/91
[2019-04-17 07:43] VITALS: BP 155/101
--- NOTE | 2019-04-17 12:06 | NUR ---
ON-GOING ASSESSMENT: CM REVIEWED CHART. CM SPOKE WITH ATTENDING. PT IS SLOWLY PROGRESSING TOWARDS GOALS BUT IS NOT MEDICALLY STABLE AT THIS TIME. CM DISCUSSED WITH ATTENDING IF PT WILL NEED BIPAP WHEN HE RETURNS TO [facility]. ATTENDING STATING PATIENT IS NOT NORMALLY ON IT SO WE WILL CONTINUE TO SEE HOW HE PROGRESSES BEFORE ORDERING BIPAP AT FACILITY. CM WILL CONTINUE TO FOLLOW TO ASSIST NEEDED.
--- NOTE | 2019-04-17 15:12 | NUR ---
OPTED TO STAY HOOKED UP TO BIPAP FOR THE WHOLE DAY. O2 SAT REMAINED ABOVE 97, BUT REPORTED LIGHT-HEADEDNESS WHILE SITTING UP WITH OT. RELIED ON MORPHINE TO EASE AIR HUNGER. LUNG SOUNDS WERE DIMINISHED IN UPPER LOBES BUT WHEEZY IN THE BOTTOM LOBES. NUTRITION WAS NOT A PRIORITY TAKING THE MASK OFF WAS RESERVED ONLY TO TAKE MEDICATIONS. CEDRIC SHAH RN
[2019-04-17 15:28] VITALS: BP 129/82
--- NOTE | 2019-04-17 15:30 | NUR ---
I have reviewed the student's documentation. Flavia FRAZIER
--- NOTE | 2019-04-17 18:07 | NUR ---
ASSUMED CARE OF PT AT 0700. PT AOX2-3 IN NO ACUTE DISTRESS. VERY ANXIOUS ABOUT COMING OFF BIPAP. OFF BIPAP TO 4L NC SPARINGLY THROUGHOUT THE DAY. BUT PT FEELING INCREASINGLY ANXIOUS AND ASKING TO BE PLACED BACK ON BIPAP DESPITE MAINTAINING SPO2> 97%. RELUCTANT TO WORK WITH THERAPIES DUE TO ANXIETY BUT AGREEABLE TO MAKE ATTEMPTS. SMALL APPETITE. SPOKE TO OVER PHONE REGARDING POC. DIMINISHED LUNG SOUNDS. SINUS ON TELEMETRY. VITALS STABLE. TURNS SELF IN BED. USING URINAL AT BEDSIDE. CALLS OUT APPROPRIATELY NEEDED. WILL CONT TO MONITOR. SLOW PROGRESS TOWARD POC GOALS.
[2019-04-17 20:00] VITALS: BP 147/95
[2019-04-18 04:15] VITALS: BP 140/85
--- NOTE | 2019-04-18 04:42 | NUR ---
PATIENT IS PROGRESSING SLOWLY IN HIS CARE PLAN. VITAL SIGNS STABLE WITH PATIENT HAVING NO COMPLAINTS OF NAUSEA. PATIENT DID COMPLAIN OF CHRONIC BACK PAIN FREQUENTLY WHICH WAS TREATED APPROPRIATELY THROUGH MEDICATION AND NON PHARMACOLOGICAL INTERVENTION. FULLY ALERT AND ORIENTED, PATIENT IS ABLE TO CALL FOR NEEDS AND PARTICIPATE IN CARE. PATIENT IS HIGHLY ANXIOUS AT TIMES. BREATHING STABLE ON BIPAP EVIDENCED BY ASSESSMENT AND CONTINUOUS SATURATION MONITOR. MORPHINE PROVIDED FOR AIR HUNGER PER ORDER. CONTINUE PLAN OF CARE.
[2019-04-18 06:02] LABS: ABSOLUTE NEUTROPHILS 5.7 thou/uL (1.4-8.2); HEMATOCRIT 35.1 % (42.0-52.0); HEMOGLOBIN 11.2 gm/dL (14.0-18.0); LYMPHOCYTES 4.9 % (24.0-44.0); MCH 27.1 pg (26.0-34.0); MCHC 31.9 g/dL (28.0-37.0); MCV 84.9 fL (80.0-100.0); MONOCYTES 5.4 % (1.0-8.0); PLATELET COUNT 277 thou/uL (150-400); POLYS 89.7 % (36.0-66.0); RBC 4.14 mil/uL (4.50-6.00); RDW 14.9 % (10.5-14.5); WBC 6.4 thou/uL (4.0-11.0)
[2019-04-18 06:21] LABS: CALCIUM 8.6 mg/dL (8.5-10.1); CREATININE 0.5 mg/dL (0.7-1.3); POTASSIUM 3.6 mmol/L (3.5-5.1)
[2019-04-18 09:01] VITALS: BP 136/86
[2019-04-18 12:48] VITALS: BP 122/72
--- NOTE | 2019-04-18 15:10 | NUR ---
DISCHARGE PLANNING. ANTICIPATED DISCHARGE TO [facility] ONCE PATIENT IS MEDICALLY READY. CLINICAL INFORMATION FAXED TO [facility] ADMISSIONS. CALL PLACED TO MANNY TO NOTIFY. UNIT SW AWARE. FOLLOWING TO ASSIST WITH PATIENTS DISCHARGE NEEDS.
--- NOTE | 2019-04-18 15:15 | NUR ---
Assumed care approx. 0700 this shift. Patient placed on 4LNC this AM by RT for about 10-15 minutes; patient became increasingly diaphoretic, clammy, and short of breath with high anxiety. Patient O2 sats dropped to the low 70's with a heart rate in the 140's to 150's. RT called back in immediately and bipap was again placed on patient starting off with 100% FiO2 and titrating down since then. Dr. Cristina notified. Dr. Cristina said to keep the bipap on, but quickly administer PO meds as the PO cardizem is greatly needed for the patient's heart rate. 02 sats have been adequate in the 90's with bipap on director multimedia and patient's heart rate has came back down to 90's/1 teens. Patient has had some lower back pain, but been reliant on morphine for air hunger and is requesting Q3H when it's due. Patient becomes increasingly anxious, and heart rate will jump up to the 120's-130's until the morphine dose is administered. Patient is getting IV fluids, but not able to eat his meals today due to reliance on the bipap. Patient has been turning self back and forth in the bed. Fall precautions are in place. Patient hasn't made progress on plan of care goals this shift.
--- NOTE | 2019-04-18 15:27 | NUR ---
GURVINDER reviewed chart and spoke with nursing and attending physician. Pt is slowly progressing towards goals for discharge. Pt remains on bipap. convention planner to fax updates to [facility] for review. Pt will return using his skilled benefit. Pt may need bipap when he returns. Will need a script for bipap. GURVINDER is following to assist as needed with discharge planning.
[2019-04-18 16:24] VITALS: BP 139/85
[2019-04-18 19:16] VITALS: BP 148/99
[2019-04-19 04:23] VITALS: BP 134/81
--- NOTE | 2019-04-19 06:04 | NUR ---
PT MAKING POOR PROGRESS TOWARDS GOALS. ON BIPAP IN AVAPS MODE OVERNIGHT. MASK OFF ONLY MOMENTARILY FOR SIP OF WATER/MEDS. LUNGS EXTREMELY DIMINISHED THROUGHOUT. MORPHINE FOR AIR HUMGER PER ORDERS.
[2019-04-19 07:50] VITALS: BP 152/97
--- NOTE | 2019-04-19 13:49 | NUR ---
SW reviewed chart and spoke with attending physician. Pt is not progressing towards goals for discharge. Pt is not tolerating being off of bipap. SW is following to assist as needed with discharge planning.
[2019-04-19 15:29] VITALS: BP 151/98
[2019-04-19 19:22] VITALS: BP 182/99
[2019-04-20 03:35] VITALS: BP 147/84
--- NOTE | 2019-04-20 04:31 | NUR ---
PT MAKING POOR PROGRESS TOWARDS GOALS. X1 DOSE OXYCODONE FOR BACK PAIN TO WHICH PT VOICED SUFFICIENT RELIEF. MORPHINE X2 DOSES FOR AIR HUNGER AND X1 DOSE OF ATIVAN GIVEN FOR PT C/O ANXIETY. ABLE TO COME OFF BIPAP FOR SIPS OF WATER AND TO TAKE PO MEDS. PT DOES QUICKLY STATE THAT HE NEEDS TO PUT THE MASK BACK ON WHEN TAKING MEDS.
[2019-04-20 08:06] VITALS: BP 162/91
--- NOTE | 2019-04-20 12:17 | NUR ---
SW reviewed chart and spoke with nursing and attending physician. Pt is not progressing towards goals for discharge. No weekend discharge planned. SW updated leasing coordinator at [facility]. brand planner to fax updates to [facility] on Tuesday. GURVINDER is following to assist as needed with discharge planning.
--- NOTE | 2019-04-20 16:40 | NUR ---
Assumed care approx. 0700 this AM. Patient taken off of bipap this morning by RT and placed on 4LNC. O2 sat adequate of 95% or higher. Patient continued to have severe anxiety about situation. Patient was able to eat and drink at lunch time with bipap off, but has since then had a panic attack and insisted on wearing the bipap. Patient requesting Morphine Q3H with ativan to supplement. Patient taking oxycodone intermittenly for chronic back pain. Patient continues to turn self in bed, but refusing to work with therapy. Patient's updated on the phone. Patient has made slight progress toward goals today.
[2019-04-20 17:09] VITALS: BP 127/78
[2019-04-20 19:40] VITALS: BP 107/68
[2019-04-21 04:28] VITALS: BP 115/72
[2019-04-21 05:07] LABS: BE(vivo) 11.7 mmol/L (-2 to +3); HCO3 39.4 mmol/L (22.0-26.0); PO2 100.6 mmHg (80.0-100.0); pH 7.376 (7.360-7.450); sO2 97.2 % (92.0-98.0)
[2019-04-21 05:08] LABS: PCO2 68.7 mmHg (35.0-45.0)
[2019-04-21 05:22] LABS: ABSOLUTE NEUTROPHILS 5.4 thou/uL (1.4-8.2); BASOPHILS 0.1 % (0.0-2.0); HEMATOCRIT 33.9 % (42.0-52.0); LYMPHOCYTES 5.8 % (24.0-44.0); MCH 27.3 pg (26.0-34.0); MCHC 32.4 g/dL (28.0-37.0); MCV 84.4 fL (80.0-100.0); MONOCYTES 5.6 % (1.0-8.0); PLATELET COUNT 306 thou/uL (150-400); POLYS 88.5 % (36.0-66.0); RBC 4.01 mil/uL (4.50-6.00); RDW 14.4 % (10.5-14.5); WBC 6.4 thou/uL (4.0-11.0)
[2019-04-21 05:41] LABS: ALBUMIN 2.7 g/dL (3.4-5.0); CALCIUM 8.7 mg/dL (8.5-10.1); CREATININE 0.5 mg/dL (0.7-1.3); POTASSIUM 3.6 mmol/L (3.5-5.1); TOTAL BILIRUBIN 0.2 mg/dL (<0.1-1.0); TOTAL PROTEIN 6.4 g/dL (6.4-8.2)
--- NOTE | 2019-04-21 05:41 | NUR ---
PT MAKING SLOW PROGRESS TOWARDS GOALS. ON BIPAP OVERNIGHT. PT REPORTING THAT HE IS STILL EXPERIENCING EPISODES OF AIR HUNGER AND ANXIETY THROUGHOUT THE DAY. DID GIVEN ATIVAN AT HS PER REQUEST. X1 PAIN PILL GIVEN FOR BACK PAIN TO WHICH PT VOICED ONLY MILD RELIEF. DID REQUEST MORPHINE ONCE FOR AIR HUNGER. HAVE OBSERVED OCCASIONAL COUGHING. PT DID STATE THAT THE MORPHINE MAKES IT EASIER TO REST.
[2019-04-21 07:33] VITALS: BP 113/67
[2019-04-21 15:12] VITALS: BP 119/69
--- NOTE | 2019-04-21 17:12 | NUR ---
ASSUMED CARE PT AT SHIFT CHANGE WITH ORIENTEE NURSE DIMITRI. PT ALERT AND ORIENTED, WEARING BIPAP ON AND OFF THROUGHOUT DAY. CURRENTLY 4L NC O2, TOLERATING WELL. AIR HUNGER MANAGED WITH PRN MORPHINE. PT ANXIOUS THROUGHOUT DAY, MANAGED WITH PO ANXIETY MEDS. C/O PAIN LOWER BACK- MANAGED WITH PO PAIN MEDS. PT APPETITE ADEQUATE THIS SHIFT. PT PROGRESSING TOWARDS GOALS SLOWLY. DENIES NEEDS AT THIS TIME. WILL CONT TO MONITOR AND FOLLOW POC.
[2019-04-21 19:45] VITALS: BP 135/75
[2019-04-21 21:05] LABS: ADENOVIRUS Negative (Negative); INFLUENZA A Negative (Negative); INFLUENZA B Negative (Negative); METAPNEUMOVIRUS Positive (Negative); PARAINFLUENZA 1 Negative (Negative); PARAINFLUENZA 2 Negative (Negative); PARAINFLUENZA 3 Negative (Negative); RHINOVIRUS Negative (Negative); RSV A Negative (Negative); RSV B Negative (Negative)
--- NOTE | 2019-04-22 03:28 | NUR ---
PATIENT IS PROGRESSING SLOWLY IN HIS CARE PLAN. VITAL SIGNS STABLE WITH PATIENT HAVING NO COMPLAINTS OF NAUSEA. PATIENT DID COMPLAIN OF CHRONIC BACK PAIN WHICH WAS TREATED EFFECTIVELY WITH MEDICATION AND NON PHARMACOLOGICAL INTERVENTION. FULLY ORIENTED, PATIENT IS ABLE TO CALL FOR NEEDS APPROPRIATELY AND PARTICIPATE IN CARE. PATIENT IS HIGHLY ANXIOUS AND WAS TREATED APPROPRIATELY WITH MEDICATION PER ORDERS. BREATHING STABLE ON BIPAP EVIDENCED BY ASSESSMENT AND READINGS FROM CONTINUOUS SATURATION MONITOR. MORPHINE PROVIDED FOR AIR HUNGER. PATIENT WAS CHECKED FREQUENTLY FOR INCONTINENCE WITH SKIN CARE AND PROTECTION PROVIDED. CONTINUE PLAN OF CARE.
[2019-04-22 04:20] VITALS: BP 129/70
[2019-04-22 07:24] VITALS: BP 93/56
[2019-04-22 09:22] VITALS: BP 103/63
[2019-04-22 11:23] VITALS: BP 106/68
[2019-04-22 15:07] VITALS: BP 112/70
--- NOTE | 2019-04-22 18:32 | NUR ---
Patient on Bipap most of day 35% fio2. Poor appetite for breakfast and lunch- 100% supplement consumed at lunch . Patient tolerated 5L NC throughout dinner time- about 30 minutes- patient stated he was hungry and wanted to eat- eating less than half of the meal plus supplement and asked to have Bipap initiated soon after eating stating he was uncomfortable (his pulse ox O2 was at 97-88%). Patient reported pain and anxiety throught the day shift. Patient was administered anxiolytics and pain meds as indicated. Patient is slowly working towards POC goals.
[2019-04-22 19:34] VITALS: BP 115/69
--- NOTE | 2019-04-23 03:15 | NUR ---
Pt. has slept intermittently during the night. Pain med given prior to shift change. He requested morphine for air hunger with some relief. Anxiety med given x1 this shift with some help. Maintaining O2 sat in the mid 90's on BIPAP at 35%. He has been on BIPAP for most of the shift. Placed on O2 at 5L/NC when he requested for sandwich and snack around MN stating he didn't each much dinner time due to shortness of breath and had to go back on BIPAP. Able to turn and reposition self. Bed alarm on for safety and calls appropriately. Will continue to monitor.
[2019-04-23 04:27] VITALS: BP 90/53
[2019-04-23 05:38] LABS: BASOPHILS 0.4 % (0.0-2.0); EOSINOPHILS 0.7 % (0.0-3.0); HEMATOCRIT 30.9 % (42.0-52.0); HEMOGLOBIN 9.9 gm/dL (14.0-18.0); LYMPHOCYTES 5.2 % (24.0-44.0); MCH 27.4 pg (26.0-34.0); MCHC 32.1 g/dL (28.0-37.0); MCV 85.4 fL (80.0-100.0); PLATELET COUNT 304 thou/uL (150-400); POLYS 88.7 % (36.0-66.0); RBC 3.62 mil/uL (4.50-6.00); WBC 9.1 thou/uL (4.0-11.0)
[2019-04-23 06:00] LABS: ALBUMIN 2.3 g/dL (3.4-5.0); CALCIUM 8.2 mg/dL (8.5-10.1); CREATININE 0.5 mg/dL (0.7-1.3); TOTAL BILIRUBIN 0.2 mg/dL (<0.1-1.0); TOTAL PROTEIN 5.3 g/dL (6.4-8.2)
[2019-04-23 06:01] LABS: POTASSIUM 5.3 mmol/L (3.5-5.1)
[2019-04-23 07:01] VITALS: BP 96/64
[2019-04-23 09:01] LABS: BE(vivo) 5.8 mmol/L (-2 to +3); HCO3 32.7 mmol/L (22.0-26.0); PCO2 59.3 mmHg (35.0-45.0); PO2 144.6 mmHg (80.0-100.0); pH 7.359 (7.360-7.450); sO2 98.7 % (92.0-98.0)
--- NOTE | 2019-04-23 10:25 | NUR ---
Nutrition: Pt admit with COPD and seen for LOS. Requires bipap freqently and morphine for air hunger. PO intake of meals average 35% past 2 days however drinking 100% of ensure BID. Will increase to all meals, pt agrees. Current weight up significantly from UBW which is reported as 140#. No significant edema is documented, will follow trends for accuracy. BG controlled on solumedrol. Assisted pt in ordering meals today according to food preferences. If pt able to drink Ensure TID, provides 1050 kcals and 60 gm protein. Feel needs will be met even if % intake of meals remains < 50%. Place as low risk with interventions in place.
[2019-04-23 10:46] VITALS: BP 114/65
--- NOTE | 2019-04-23 10:52 | NUR ---
lola sent updates to Jaspal at [facility], not sure of discharge date at this time.
--- NOTE | 2019-04-23 15:13 | NUR ---
SW reviewed chart and spoke with nursing and attending physician. Pt is slowly progressing towards goals for discharge. Pt is not ready for dc today. planner/scheduler to fax clinical updates to [facility] for review. Plan is for pt to return to [facility] when medically stable. GURVINDER is following to assist as needed with discharge planning.
[2019-04-23 16:21] VITALS: BP 109/65
[2019-04-23 19:58] VITALS: BP 107/73
--- NOTE | 2019-04-24 04:27 | NUR ---
Pt. very anxious at beginning of shift. PRN anxiety med given with good relief. BIPAP on most of the night. Shortness of breath with exertion. C/O back pain and requested pain med. Oxycodone given with good relief. He slept well most of the night.Bed alarm on for safety. SCD's for DVT prophylaxis. Pt. able to turn self on bed. Cont. on isolation for metapneumovirus. Making progress towards care plan goals.
[2019-04-24 05:00] VITALS: BP 124/83
[2019-04-24 08:20] VITALS: BP 106/70
--- NOTE | 2019-04-24 11:21 | NUR ---
sent updates to [facility], ready for dc today, let Jaspal in admissions know
--- NOTE | 2019-04-24 13:27 | NUR ---
GURVINDER reviewed chart and spoke with nursing and attending physician. Pt is progressing towards goals for discharge. buyer planner sent updated clinical info to [facility] for review. Pt will need bipap when he returns. Bipap settings faxed to [facility]. Per pharmacy clinical coordinator, they will order pt's bipap today. Unsure when it will be delivered. GURVINDER met with pt at bedside. Pt on bipap and was about to come off bipap for lunch. Nursing states pt is off bipap at meal times. GURVINDER is following to assist as needed with discharge planning.
[2019-04-24 15:19] VITALS: BP 126/81
--- NOTE | 2019-04-24 20:01 | NUR ---
PATIENT EXPRESSED QUITE FREQUENT AIRHUNGER. DR. RODRIGUEZ ROUNDED AND HAD TALKED WITH PATIENT PRIOR TO TALKING WITH RN. DR. RODRIGUEZ EXPRESSED TO ORDER PRN MORPHINE FOR AIRHUNGER HE WAS CHANGING CODE STATUS TO NO CODE AND PATIENT NEEDS ASSISTANCE WITH FEELING MORE AT EASE WITH HIS BREATHING. NURSE EXPRESSED THAT DR. TALAVERA WAS ATTEMPTING TO GET HIM OFF IV MORPHINE. HE EXPRESSED PATIENT NEEDS IT AT THIS TIME. PATIENT IS MORE CALM AND HAS AN EASIER TIME BREATHING WITH THE MORPHINE. HE IS COOPERATIVE AND PLEASANT. PATIENT RECEIVED BATH TODAY AND RESTED CALMLY. HE WAS ON BIPAP EXCEPT FOR MEALS, THEN AFTER HE ATE, HE WOULD REQUEST TO BE BACK ON BIPAP. REPORT GIVEN TO THE BUDGET SPECIALIST RN FOR CONTINUATION OF CARE.
[2019-04-24 20:45] VITALS: BP 106/74
[2019-04-25 05:05] VITALS: BP 90/854
--- NOTE | 2019-04-25 06:11 | NUR ---
ASSUMED CARE FOR PT AT 1900. PT CALLED OUT WANTING ANXIETY MEDS AND MORPHINE. PT IS PLEASANT AND ENJOYS CONVERSATION. PT WAS ON 5L VIA NC AND TOLERATING IT WELL WITH OXYGEN STATS ABOVE 90. PLACED PT BACK ON BIPAP AT 2100. VSS AND NO TELE CONCERNS. ISOLATION AMD FALL PRECAUTIONS BEING FOLLOWED. HOURLY ROUDNING.
[2019-04-25 07:45] VITALS: BP 99/55
--- NOTE | 2019-04-25 14:27 | NUR ---
GURVINDER reviewed chart and spoke with nursing and attending physician. Pt remains on continuous bipap and IV pain meds. Received consult for palliative care/hospice. GURVINDER met with pt at bedside to discuss discharge plan. Pt states that he is interested in hospice. Pt has used [facility] in the past. GURVINDER explained process for hospice evaluation and then pt and hospice can decide if pt qualifies for admission to [facility] or if pt will return to [facility] with Hospice. GURVINDER updated [facility] in admissions at [facility]. GURVINDER discussed with slag production worker. speeder worker will be onsite at 1800 this evening. GURVINDER updated nursing and attending physician. GURVINDER is following to assist as needed with discharge planning.
--- NOTE | 2019-04-25 14:31 | NUR ---
dp sent referral to HOSPICE, also requested they come see patient today. DP will call them.
[2019-04-25 15:22] VITALS: BP 100/60
[2019-04-25 19:28] VITALS: BP 129/79
--- NOTE | 2019-04-25 19:43 | NUR ---
Patient has been on O2 5L with PRN use of Bipap. Patient was off bipap about 6 hours today. He frequently requsted morphine for air hunger through the day. Patient had consult with Hospice. During a discussin with RN regarding his DNR status, Patient adivsed RN in the event his heart stops, he does not want chest compressions performed; However, he also stated that if he was unable to breathe on his own, he would like to be intubated. No working towards POC goals.
[2019-04-26 05:25] VITALS: BP 100/67
--- NOTE | 2019-04-26 05:41 | NUR ---
RESUMED CARE FOR PT. PT OXYGEN STATS ON NC AND BIPAP ARE ABOVE 90. PT CALLS FREQUENTLY FOR MORPHINE. PT CONTINENT TO BLADDER BUT HAD SMALL BM WHILE IN BED. PT WENT ON BIPAP AT 2100. FALL PRECAUTIONS AND ISOLATIONS BEING MAINTAINED. HOURLY ROUNDING.
[2019-04-26 08:04] VITALS: BP 132/91
--- NOTE | 2019-04-26 13:41 | NUR ---
GURVINDER reviewed chart and spoke with nursing and attending physician. Attending physician met with pt earlier today. Pt is agreeable with going to [facility]. GURVINDER received call from JOSHUA Cai at [facility], who did onsite eval. Pt requires bipap and IV pain meds. GURVINDER met with pt at bedside to discuss going to [facility]. Pt is agreeable. Pt concerned about his belongings over at [facility]. Pt requests his family vegetable picker his belongings. GURVINDER updated [facility] at [facility]. Awaiting input from [facility] at this time, if they can accept pt. GURVINDER is following to assist as needed with discharge planning.
[2019-04-26 16:38] VITALS: BP 118/73
--- NOTE | 2019-04-26 19:42 | NUR ---
ASSUMED PATIENT CARE AT 0700. A/O X4. PATIENT ASKING 4MG IV MORPHINE Q2H. WILL TRY ORAL TONIGHT. NOT TOWARDS POC GOALS.
[2019-04-26 20:32] VITALS: BP 130/73
[2019-04-27 04:00] VITALS: BP 117/72
--- NOTE | 2019-04-27 05:13 | NUR ---
PT MAKING POOR PROGRESS TOWARDS GOALS. ON O2 AT 5L THEN ON BIPAP OVERNIGHT. X2 DOSES OF ROXANOL GIVEN FOR SOA. PT REPORTS ONLY MILD RELIEF. X1 DOSE OF ATIVAN FOR ANXIETY AT BEDTIME.
[2019-04-27 07:35] VITALS: BP 122/72
--- NOTE | 2019-04-27 10:27 | NUR ---
DISCHARGE NOTE: GURVINDER reviewed chart and spoke with nursing and attending physician. logger onsite this morning and states that pt is not appropriate for the hospice house. Pt is appropriate for admission to hospice. Pt is aware and agreeable with plan to return to [facility] with Hospice. Pt has been tolerating PO pain meds. Pt has used bipap at night time. SW notified plan coordinator at [facility]. Will need bipap orders. Chart copy requested. GURVINDER is following to finalize discharge.
[2019-04-27] MEDS ORDERED: ACETAMINOPHEN325 M1 PO (11:31)
[2019-04-27] MEDS ORDERED: CARVEDILOL12.5 MG PO (11:31)
[2019-04-27] MEDS ORDERED: ATIVAN1 MG PO (11:31)
[2019-04-27] MEDS ORDERED: DOXYCYCLINE 10100 MG PO (11:31)
[2019-04-27] MEDS ORDERED: MSL20MG/ML PO (11:31)
--- NOTE | 2019-04-27 13:24 | NUR ---
DISCHARGE ORDERS COMPLETED. PATIENT DISCHARGING TO [facility] WITH HOSPICE SERVICES. DISCHARGE ORDERS AND SUMMARY FAXED TO [facility], [facility] ADMISSIONS, VERIFIED RECEIVED. TRANSORTATION SET UP PER [facility], 15-1530 HOURS. TITO NOTIFIED. CHART COPY COMPLETED PER [employer]. UNIT RN NOTIFIED AND CONTACT NUMBER FOR REPORT PROVIDED.
[2019-04-27 15:59] VITALS: BP 122/72
--- NOTE | 2019-04-27 16:20 | NUR ---
DC TO [facility] WITH HOSPICE NOW. PATIENT TOLERATED ON ORAL MORPHINE.
== END 2019-04-27 16:20 | DRG 189 ==
LOC: ER 20:52 → 3W 22:46 → 4S 22:46 → EROBS 22:46 → 3W 04-16 01:05 → 4S 04-20 13:50 → 3W 04-26 13:34
PROVIDERS: Emergency Medicine; Hospitalist; Nurse Practitioner Acute Care; Pediatrics; ADMIT Internal Medicine
PROC: 5A09357 Assistance with Respiratory Ventilation, Less than 24 Consecutive Hours, Continuous Positive Airway Pressure (ICD-10-PCS; principal; 2019-04-16)
PROC: 5A09357 Assistance with Respiratory Ventilation, Less than 24 Consecutive Hours, Continuous Positive Airway Pressure (ICD-10-PCS; 2019-04-17)
PROC: 5A09357 Assistance with Respiratory Ventilation, Less than 24 Consecutive Hours, Continuous Positive Airway Pressure (ICD-10-PCS; 2019-04-18)
PROC: 5A09357 Assistance with Respiratory Ventilation, Less than 24 Consecutive Hours, Continuous Positive Airway Pressure (ICD-10-PCS; 2019-04-19)
PROC: 5A09357 Assistance with Respiratory Ventilation, Less than 24 Consecutive Hours, Continuous Positive Airway Pressure (ICD-10-PCS; 2019-04-20)
PROC: 5A09357 Assistance with Respiratory Ventilation, Less than 24 Consecutive Hours, Continuous Positive Airway Pressure (ICD-10-PCS; 2019-04-21)
PROC: 5A09357 Assistance with Respiratory Ventilation, Less than 24 Consecutive Hours, Continuous Positive Airway Pressure (ICD-10-PCS; 2019-04-22)
PROC: 5A09357 Assistance with Respiratory Ventilation, Less than 24 Consecutive Hours, Continuous Positive Airway Pressure (ICD-10-PCS; 2019-04-23)
PROC: 5A09357 Assistance with Respiratory Ventilation, Less than 24 Consecutive Hours, Continuous Positive Airway Pressure (ICD-10-PCS; 2019-04-24)
PROC: 5A09357 Assistance with Respiratory Ventilation, Less than 24 Consecutive Hours, Continuous Positive Airway Pressure (ICD-10-PCS; 2019-04-25)
PROC: 5A09357 Assistance with Respiratory Ventilation, Less than 24 Consecutive Hours, Continuous Positive Airway Pressure (ICD-10-PCS; 2019-04-26)
PROC: 5A09357 Assistance with Respiratory Ventilation, Less than 24 Consecutive Hours, Continuous Positive Airway Pressure (ICD-10-PCS; 2019-04-27)
DX: J96.21 Acute and chronic respiratory failure with hypoxia (principal); J44.1 Chronic obstructive pulmonary disease with (acute) exacerbation; I16.0 Hypertensive urgency; J96.22 Acute and chronic respiratory failure with hypercapnia; K21.9 Gastro-esophageal reflux disease without esophagitis; R00.0 Tachycardia, unspecified; G89.29 Other chronic pain; M54.5 Low back pain; E87.5 Hyperkalemia; J43.9 Emphysema, unspecified; D63.8 Anemia in other chronic diseases classified elsewhere; Z66 Do not resuscitate; F41.8 Other specified anxiety disorders; F32.9 Major depressive disorder, single episode, unspecified; Z93.0 Tracheostomy status; Z93.1 Gastrostomy status; Z88.8 Allergy status to other drugs, medicaments and biological substances; Z87.891 Personal history of nicotine dependence; Z80.0 Family history of malignant neoplasm of digestive organs; Z83.6 Family history of other diseases of the respiratory system; Z82.3 Family history of stroke; Z83.3 Family history of diabetes mellitus
CPT/HCPCS: 10100; 10879